=== PATIENT | female | born 1950 | race Caucasian/White ===

== ENCOUNTER → 2016-11-19 | Outpatient (CLI) | payer OTHER ==
[~2016-11-19] MED LIST: ASCA500 PO; CALC500C3 PO; CITRACEL; ERGO1CAP35 PO; FLUO10CA48 PO; MULT-506 PO; PRLSR20 PO; SYN50 PO
[2016-11-19 18:00] LABS: BLOOD UREA NITROGEN 18 mg/dl (7-18); BUN/CREATININE RATIO 29.3 (10-20); CALCIUM 9.4 mg/dl (8.5-10.1); CARBON DIOXIDE 31 mmol/L (21-32); CHLORIDE 100 mmol/L (98-107); CREATININE 0.61 mg/dl (0.60-1.20); GLUCOSE 77 mg/dl (70-99); MAGNESIUM 2.3 mg/dl (1.8-2.4); POTASSIUM 4.2 mmol/L (3.5-5.1); SODIUM 138 mmol/L (136-145)
== END | disposition home or self-care (01) ==
LOC: C.LABPVFM 12:04
PROVIDERS: ATTEND Nurse Practitioner
DX: R25.2 Cramp and spasm (principal)

== ENCOUNTER → 2016-12-17 | Outpatient (CLI) | payer OTHER | END | disposition home or self-care (01) | LOC: C.LABPVFM 07:27 | PROVIDERS: ATTEND Family Medicine | DX: J02.9 Acute pharyngitis, unspecified (principal) ==

== ENCOUNTER → 2017-03-08 | Outpatient (CLI) | payer OTHER ==
[2017-03-08 13:19] LABS: BASO % 0.4 %; BASO ABS # 0.03 K/uL (0-0.2); COMPLETE YES; EOS % 0.4 %; HEMATOCRIT 39.3 % (37-47); IG% 0.1 %; LYMPH % 23.3 %; LYMPH ABS # 1.77 K/uL (1.2-3.4); MEAN CELL VOLUME 92.9 fL (80-100); MEAN CORPUSCULAR HEMOGLOBIN 30.5 pg (25-34); MEAN CORPUSCULAR HGB CONC 32.8 g/dl (32-36); NEUT % 68.8 %; PLATELET COUNT 313 K/uL (130-400); RED BLOOD COUNT 4.23 M/uL (4.2-5.4)
[2017-03-11 21:53] LABS: ANTI-SS-A <1.0 NEG AI (<1.0 NEG); ANTI-SS-B <1.0 NEG AI (<1.0 NEG)
== END | disposition home or self-care (01) ==
LOC: C.LABPVFM 11:00
PROVIDERS: ATTEND Family Medicine
DX: J06.9 Acute upper respiratory infection, unspecified (principal); J02.9 Acute pharyngitis, unspecified; R59.1 Generalized enlarged lymph nodes

== ENCOUNTER → 2017-04-03 | Outpatient (CLI) | payer OTHER ==
--- NOTE | 2017-04-03 13:49 | MAMMOGRAPHY REPORT ---
BILATERAL DIGITAL SCREENING MAMMOGRAM WITH CAD: 04/03/2017 CLINICAL HISTORY: Routine screening. Patient has no complaints. TECHNIQUE: Current study was also evaluated with a Computer Aided Detection (CAD) system. Bilateral CC and MLO views were obtained. COMPARISON: Comparison is made to exams dated: 03/28/2016 mammogram, 03/16/2015 mammogram, 03/03/2014 ma mmogram, 03/04/2013 mammogram, 02/25/2013 mammogram, and 02/20/2012 mammogram - [facility]. BREAST COMPOSITION: There are scattered areas of fibroglandular density in both breasts. FINDINGS: No suspicious masses, calcifications, or areas of architectural distortion are noted in ei ther breast. There has been no significant interval change compared to prior exams. IMPRESSION: ACR BI-RADS CATEGORY 1: NEGATIVE There is no mammographic evidence of malignancy. A 1 year screening mammogram is recommended. The pa tient will receive written notification of the results. Approximately 10% of breast cancers are not detected with mammography. A negative mammographic report should not delay biopsy if a clinically suggestive mass is present. Naya Richter M.D. /:04/03/2017 12:44:42 Oxyacetylene Welder: Jessica POLANCO(Jhon)(Nataliia)(BD), [facility] letter sent: Normal 1/2 BI-RADS Code: ACR BI-RADS Category 1: Negative
== END | disposition home or self-care (01) ==
LOC: C.MAMM 11:02
PROVIDERS: ATTEND Nurse Practitioner
DX: Z12.31 Encounter for screening mammogram for malignant neoplasm of breast (principal)

== ENCOUNTER → 2017-06-23 | Outpatient (CLI) | payer OTHER ==
--- NOTE | 2017-06-23 11:10 | DIAGNOSTIC IMAGING REPORT ---
THORACIC SPINE 3 VIEWS HISTORY: MILD BACK PAIN COMPARISON: Thoracic spine 05/03/2016. FINDINGS: No change in the old mild superior endplate compression deformity at T8. Moderate degenerative disc disease with disc space narrowing, osteophytes, and endplate sclerosis at T7-T8 persists. No acute fractures identified within the thoracic spine. No subluxation. Paraspinal soft tissues are unremarkable. IMPRESSION: No change compared to the prior study. Old mild superior endplate compression deformity at T8. Stable moderate degenerative disc disease at T7-T8. No acute fractures. Electronically signed by: Jan Ravi M.D. 06/23/2017 11:09 AM Dictated Date/Time: 06/23/2017 11:05 AM
--- NOTE | 2017-06-23 12:16 | DIAGNOSTIC IMAGING REPORT ---
CHEST AND ABDOMEN 2 VIEWS HISTORY: MILD BACK PAIN COMPARISON: Abdomen and pelvis CT 11/22/2009. FINDINGS: The lungs are clear. The heart is normal in size. Levoscoliosis of the thoracolumbar spine. No pneumoperitoneum. No pneumatosis. The bowel gas pattern is unremarkable. No evidence for bowel obstruction. No renal or ureteral calculi. Degenerative changes seen within the mid to lower lumbar spine. Small calcification within the left deep pelvis is consistent with a phlebolith. IMPRESSION: No acute cardiopulmonary process. No evidence for bowel obstruction. Electronically signed by: Jan Ravi M.D. 06/23/2017 12:15 PM Dictated Date/Time: 06/23/2017 12:13 PM
[2017-06-23 12:47] LABS: MANUAL MICROSCOPIC REQUIRED? YES; REVIEW REQ? NO; URINE APPEARANCE CLEAR (CLEAR); URINE BILIRUBIN NEG (NEG); URINE COLOR YELLOW; URINE NITRITE NEG (NEG); UROBILINOGEN NEG (NEG)
[2017-06-23 13:08] LABS: URINE BACTERIA 1+ (NEG); URINE WBC 0 /hpf (0-5)
[2017-06-23 13:12] LABS: ALT/SGPT 30 U/L (12-78); AST/SGOT 26 U/L (15-37); BLOOD UREA NITROGEN 14 mg/dl (7-18); BUN/CREATININE RATIO 27.5 (10-20); CALCIUM 9.4 mg/dl (8.5-10.1); CARBON DIOXIDE 30 mmol/L (21-32); CHLORIDE 98 mmol/L (98-107); CREATININE 0.51 mg/dl (0.60-1.20); GLUCOSE 98 mg/dl (70-99); POTASSIUM 4.2 mmol/L (3.5-5.1); SODIUM 133 mmol/L (136-145)
[2017-06-23 13:31] LABS: ALB/GLOB RATIO 0.8 (0.9-2); ALKALINE PHOSPHATASE 69 U/L (45-117)
== END | disposition home or self-care (01) ==
LOC: C.RADPV 10:31
PROVIDERS: ATTEND Family Medicine Adult Medicine
DX: M51.34 Other intervertebral disc degeneration, thoracic region (principal)

== ENCOUNTER → 2017-11-14 | Outpatient (CLI) | payer OTHER | END | disposition home or self-care (01) | LOC: C.LAB1850 08:40 | PROVIDERS: ATTEND Internal Medicine Rheumatology | DX: M80.00XA Age-related osteoporosis with current pathological fracture, unspecified site, initial encounter for fracture (principal); X58.XXXA Exposure to other specified factors, initial encounter; E61.8 Deficiency of other specified nutrient elements ==

== ENCOUNTER 2021-11-14 11:45 | Observation (INO) ==
[2021-11-14] MEDS ORDERED: NITROGLYCERIN 2% OINTMENT 30GM TUBE EXT STA (12:00)
--- NOTE | 2021-11-14 12:06 | Emergency Department Note ---
History of Present Illness General Chief complaint: Chest Pain Stated complaint: CHEST PAIN Time Seen by Provider: 11/14/21 11:47 Source: patient Mode of arrival: ambulatory Limitations: no limitations History of Present Illness Provider complaint: chest pain Onset (ago): month(s) 2 Location: chest Radiation: non-radiation Severity: moderate Maximum Pain Intensity: 8 Associated symptoms: + chest pain and + shortness of breath; no cough, no diaphoresis, no headaches, no loss of appetite or no nausea/vomiting Treatments prior to arrival: aspirin and other This is a 71-year-old female sent to the emergency room after evaluation by cardiology, Dr. Sage in the office. Patient with recent preop EKG for EGD that was scheduled for yesterday. Patient's EKG found to be abnormal and so she was referred urgently to Dr. Sage today. Patient states she has been having intermittent chest pain over the course of the last 2 months, however more recently feels it is become more frequent and lasting longer. Patient states she does notice it with exertion but it has also happened at rest. Patient states she has noticed slight increased shortness of breath with exertion, particularly going up the stairs. Patient states the pressure and heaviness typically is in the lower central chest. She only had one episode of accompanying back pain but otherwise feels that the pain has not been radiating and was had no other accompanying pain in her neck, jaw, or upper extremities. Patient denies any accompanying diaphoresis, nausea or vomiting. Patient denies any history of hypertension, hyperlipidemia, diabetes, or tobacco abuse. Patient states many years ago she had an EKG done by her PCP at [facility], none more recent. No prior cardiac evaluation. Patient denies any recent illness or known sick contact. No other new medications. Pt seen during a time of high acuity and national emergency pandemic while wearing PPE. Home Medications Medication Instructions Recorded Confirmed Type calcium xvl-C6-T-mag 1 tab PO BID tab 03/19/19 11/14/21 History ht-[id number]-cqdsmr 250 mg calcium-500 unit tablet fexofenadine 180 mg tablet 180 mg PO DAILY 03/19/19 11/14/21 History multivitamin 1 tab PO DAILY 03/19/19 11/14/21 History polyethylene glycol 3350 17 See Rx Instructions PO DAILY PRN 03/19/19 11/14/21 History gram/dose oral powder (Miralax) cholecalciferol (vitamin D3) 25 1,000 unit PO DAILY cap 11/17/20 11/14/21 History mcg (1,000 unit) capsule omeprazole 20 mg capsule,delayed 20 mg PO .COMPLEX cap 01/11/21 11/14/21 H istory release levothyroxine 50 mcg tablet 50 mcg PO DAILY #90 tab 03/13/21 11/14/21 Rx Lactobacills gasseri-Bifidobac 1 cap PO DAILY #30 cap 06/05/21 11/14/21 Rx bifidum,longum 1.5 billion cell capsule (Inforama) echinacea 380 mg capsule 760 mg PO BID #60 cap 06/05/21 11/14/21 Rx methylcellulose (laxative) 500 mg 500 mg PO BID #60 tab 06/05/21 11/14/21 Rx tablet (Citrucel) clobetasol 0.05 % topical cream See Rx Instructions .ROUTE 11/08/21 11/14/21 Rx .COMPLEX PRN #15 g diclofenac sodium 1 % topical gel 2 g TOP .COMPLEX PRN #100 g 11/13/21 11/14/21 Rx melatonin 5 mg tablet 5 mg PO HS tab 11/13/21 11/14/21 History acetaminophen 500 mg tablet 500 mg PO Q6H PRN 11/14/21 11/14/21 History bacitracin zinc 500 unit-polymyxin 1 applic TOPICAL Q12H PRN 11/14/21 11/14/21 History B 10,000 unit/gram topical ointment Allergies Allergy/AdvReac Type Severity Reaction Status Date / Time Penicillins Allergy Mild RASH Unverified 11/14/21 13:15 pneumococcal vaccine Allergy Mild sore Verified 11/14/21 13:15 [From Prevnar 13 (PF)] swollen arm at injection site Cephalosporins Allergy Unknown Unknown Verified 11/14/21 13:15 nitrofurantoin Allergy Unknown Unknown Verified 11/14/21 13:15 metronidazole AdvReac Mild Nausea Verified 11/14/21 13:15 Sulfa (Sulfonamide AdvReac Mild VOMITING Unverified 11/14/21 13:15 Antibiotics) Past Med/Surg History Medical History Generalized abdominal pain History of hematuria Irritable bowel syndrome has mostly Diarrhea but has also had constipation Microscopic hematuria Surgical History History of cryosurgery of cervix History of dilation and curettage History of laparoscopy History of tubal ligation Family History Grandmother (Paternal) Breast cancer Brother Prostate cancer Heart disease Myocardial infarction Denies family history of Ovarian cancer Colorectal cancer Social History Smoking Status: Never smoker Second Hand Exposure: No; Do You Dip or Chew Tobacco: No; Tobacco Cessation Education Requested by Patient: No Hx Alcohol Use: No Hx Substance Use: No Communication Ability: Effective Facility Maintenance Technician Required: No Beliefs That Will Affect Care: None marital status: Current Living Situation: Spouse current occupational status: employed 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 Other Information That Helps Us Care for You: No Feels Safe at Home: Yes Safety Concerns: Feels Safe At This Time caffeine: Yes (Hot Chocolate and tea) Dental Care, Regularly: Yes Physical Activity Frequency: 5-6 Times per Week Seatbelt Use: always Sunscreen Use: Yes Assistive Devices: None Review of Systems A total of 10 systems reviewed and were otherwise negative All systems reviewed & are unremarkable except as noted in HPI & below Physical Exam Vital Signs Vital Signs - 24 hr 11/14/21 11:48 11/14/21 12:07 11/14/21 12:50 Temperature 36.8 C Temperature Source Temporal Artery Scan Pulse Rate 86 Pulse Rate [Left Apical] 86 Pulse Rhythm [Left Apical] Irregular Pulse Strength [Left Apical] Normal Respiratory Rate 18 27 H Respiratory Effort / Characteristics Non-Labored Respiratory Depth Normal Normal Normal Blood Pressure 155/81 H Blood Pressure [Right Arm] 163/88 H Blood Pressure Mean 105 Blood Pressure Mean [Right Arm] 113 Blood Pressure Position [Right Arm] Lying Pulse Oximetry 99 98 Oxygen Delivery Method Room Air Room Air Room Air Sepsis Recent Fever Within 48 Hours No Sepsis New/Unexplained Change in Mental Status No Sepsis Action Taken by Nursing No Action Required 11/14/21 13:30 Temperature Temperature Source Pulse Rate 81 Pulse Rate [Left Apical] Pulse Rhythm [Left Apical] Pulse Strength [Left Apical] Respiratory Rate 21 Respiratory Effort / Characteristics Respiratory Depth Blood Pressure 157/81 H Blood Pressure [Right Arm] Blood Pressure Mean 106 Blood Pressure Mean [Right Arm] Blood Pressure Position [Right Arm] Pulse Oximetry 98 Oxygen Delivery Method Sepsis Recent Fever Within 48 Hours Sepsis New/Unexplained Change in Mental Status Sepsis Action Taken by Nursing GENERAL: alert, well appearing, well nourished, no distress, non-toxic EYE EXAM: normal conjunctiva, PERRL and EOM's grossly intact OROPHARYNX: no exudate, no erythema, lips, buccal mucosa, and tongue normal and mucous membranes are moist NECK: supple, no nuchal rigidity, no adenopathy, non-tender LUNGS: Clear to auscultation. Normal chest wall mechanics, no w/r/r HEART: no murmurs, S1 normal and S2 normal ABDOMEN: abdomen soft, non-tender, normo-active bowel sounds, no masses, no rebound or guarding. BACK: Back is symmetrical on inspection and there is no deformity, no midline tenderness, no CVA tenderness. SKIN: no rashes and no bruising UPPER EXTREMITIES: upper extremities are grossly normal. FROM, nml pulses b/l. LOWER EXTREMITIES: No pitting edema. FROM, nml pulses b/l. NEURO EXAM: Normal sensorium, cranial nerves II-XII grossly intact, normal speech, no gross weakness of arms, no gross weakness of legs. Gross sensation intact. Course Administered Medications Heparin Sodium (Porcine) (Heparin Sod 5,000 Unit/0.5 Ml Vial) 5,000 units SQ Q8 ANI Stop: 12/14/21 14:29 Last Admin: 11/14/21 16:48 Dose: Not Given Documented by: [id number] Discontinued Medications Famotidine (Famotidine 20mg/5ml Iv Push) 20 mg IV ONE STA Stop: 11/14/21 12:10 Last Admin: 11/14/21 12:18 Dose: 20 mg Documented by: [id number] Nitroglycerin (Nitroglycerin 2% Ointment 30gm Tube) 1 inch EXT NOW STA Stop: 11/14/21 12:01 Last Admin: 11/14/21 12:17 Dose: 1 inch Documented by: [id number] Medical Decision Making Differential Diagnosis Differential diagnoses includes but is not limited to acute coronary syndrome, myocardial infarction, pericarditis, pulmonary embolus, aortic dissection, pneumonia, pneumothorax, musculoskeletal, shingles, esophageal. Medical Records Attestation: I reviewed the patient's medical records. Home Medications Current Medication List: was personally reviewed by me Laboratory Data Attestation: I reviewed the patient's lab results. Result diagrams: 11/14/21 12:04 11/14/21 12:04 Lab Results 11/14/21 11/14/21 11/14/21 Range/Units 12:04 12:04 12:04 WBC 7.56 (4.8-10.8) K/uL RBC 4.51 (4.2-5.4) M/uL Hgb 13.9 (12.0-16.0) g/dL Hct 41.9 (37-47) % MCV 92.9 (80-100) fL MCH 30.8 (25-34) pg MCHC 33.2 (32-36) g/dL RDW Std Deviation 40.7 (36.4-46.3) fL RDW Coeff of Lance 12.1 (11.5-14.5) % Plt Count 312 (130-400) K/uL MPV 10.2 (7.4-10.4) fL Immature Gran % (Auto) 0.1 % Neut % (Auto) 56.6 % Lymph % (Auto) 33.9 % Terrell % (Auto) 8.7 % Eos % (Auto) 0.4 % Baso % (Auto) 0.3 % Neut # (Auto) 4.28 (1.4-6.5) K/uL Lymph # (Auto) 2.56 (1.2-3.4) K/uL Terrell # (Auto) 0.66 H (0.11-0.59) K/uL Eos # (Auto) 0.03 (0-0.5) K/uL Baso # (Auto) 0.02 (0-0.2) K/uL Immature Gran # (Auto) 0.01 (0.00-0.02) K/uL PT Cancelled INR Cancelled Sodium 136 (136-145) mmol/L Potassium TNP Chloride 99 (98-107) mmol/L Carbon Dioxide 30 (21-32) mmol/L Anion Gap 7 (3-11) BUN 16 (6-23) mg/dl Creatinine 0.55 L (0.6-1.2) mg/dl Est Cr Clr Drug Dosing 81.0 ml/min Est GFR ( Amer) 109.4 ml/min Est GFR (Non-Af Amer) 94.4 ml/min BUN/Creatinine Ratio 29.1 H (10-20) Glucose 90 (70-99(Fasting)) mg/dl Calcium 9.8 (8.5-10.1) mg/dl Magnesium 2.0 (1.7-2.4) mg/dl Total Bilirubin 0.3 (0.2-1.0) mg/dl AST TNP ALT 20 (7-52) U/L Alkaline Phosphatase 53 (34-104) U/L Troponin I < 0.03 (0-0.04) ng/ml Total Protein 7.8 (6.0-8.3) gm/dl Albumin 4.2 (3.4-5.0) gm/dl Globulin 3.6 (2.5-4.0) gm/dl Albumin/Globulin Ratio 1.2 (0.9-2) TSH (0.300-4.500) uIu/ml SARS-CoV-2, RNA, NAAT (NEGATIVE) 11/14/21 11/14/21 11/14/21 Range/Units 12:19 12:56 13:02 WBC (4.8-10.8) K/uL RBC (4.2-5.4) M/uL Hgb (12.0-16.0) g/dL Hct (37-47) % MCV (80-100) fL MCH (25-34) pg MCHC (32-36) g/dL RDW Std Deviation (36.4-46.3) fL RDW Coeff of Lance (11.5-14.5) % Plt Count (130-400) K/uL MPV (7.4-10.4) fL Immature Gran % (Auto) % Neut % (Auto) % Lymph % (Auto) % Terrell % (Auto) % Eos % (Auto) % Baso % (Auto) % Neut # (Auto) (1.4-6.5) K/uL Lymph # (Auto) (1.2-3.4) K/uL Terrell # (Auto) (0.11-0.59) K/uL Eos # (Auto) (0-0.5) K/uL Baso # (Auto) (0-0.2) K/uL Immature Gran # (Auto) (0.00-0.02) K/uL PT 10.2 INR 1.0 Sodium (136-145) mmol/L Potassium Chloride (98-107) mmol/L Carbon Dioxide (21-32) mmol/L Anion Gap (3-11) BUN (6-23) mg/dl Creatinine (0.6-1.2) mg/dl Est Cr Clr Drug Dosing ml/min Est GFR ( Amer) ml/min Est GFR (Non-Af Amer) ml/min BUN/Creatinine Ratio (10-20) Glucose (70-99(Fasting)) mg/dl Calcium (8.5-10.1) mg/dl Magnesium (1.7-2.4) mg/dl Total Bilirubin (0.2-1.0) mg/dl AST ALT (7-52) U/L Alkaline Phosphatase (34-104) U/L Troponin I (0-0.04) ng/ml Total Protein (6.0-8.3) gm/dl Albumin (3.4-5.0) gm/dl Globulin (2.5-4.0) gm/dl Albumin/Globulin Ratio (0.9-2) TSH 1.872 (0.300-4.500) uIu/ml SARS-CoV-2, RNA, NAAT NEGATIVE (NEGATIVE) Imaging Data Radiologist's Impression: Chest X-Ray 11/14/21 11:48 XR chest 1V portable CLINICAL HISTORY: chest pain. COMPARISON STUDY: 03/21/2020 TECHNIQUE: 1 view of the chest FINDINGS: Single frontal view of the chest demonstrates the cardiomediastinal silhouette to be within normal limits. The lungs are clear of alveolar opacities. There is no evidence for pleural effusion. There is no evidence for vascular congestion. There is no acute osseous pathology. IMPRESSION: 1. No acute cardiopulmonary disease. ACT 112: Negative or not required by law. Electronically signed by: Eddie Davies M.D. 11/14/2021 12:19 PM ECG Data Attestation: I personally reviewed and interpreted this ECG as follows: Indication: + chest pain Rate (beats per minute): 78 Rhythm: + normal sinus ECG Intervals/blocks: + Left bundle branch block and + Normal QT ECG [place]: + Left axis deviation MDM Narrative This is a 71-year-old female sent in from cardiology office due to concern for ongoing chest pain, dyspnea on exertion, and an abnormal EKG which showed a presumably new left bundle branch block. Patient with no prior history. Other than age patient with no overt cardiac risk factors. Cardiology had contacted their in-house colleague prior to my evaluation. Upon patient arrival, EKG performed, labs drawn and sent, and Nitropaste applied as a precaution. Patient was hemodynamically stable. Dr. Garcia from cardiology came and evaluated the patient in the emergency room and ordered a stat echo. Patient made hemodynamically stable in the emergency room. Case discussed with hospitalist for additional evaluation and management, cardiology's plan at this point is to perform an echo and then potentially take patient for cardiac catheterization today. An order was placed for continuous cardiac monitoring. The monitor shows a rate of _86_ with _normal sinus_ rhythm. Impression & Plan Chest pain, SIGALA (dyspnea on exertion), Left bundle-branch block, unspecified Discharge Plan Visit Data Chief Complaint: Chest Pain Stated Complaint: CHEST PAIN ED Provider: Ana Paula Dumont Discharge Problem: Chest pain, SIGALA (dyspnea on exertion), Left bundle-branch block, unspecified Patient Disposition: Admitted As Inpatient Discharge Instructions Interventions: ED Discharge Assessment Last Done: 11/14/21 13:58 Discharge Problem: Chest pain Qualifiers: Chest pain type: unspecified Qualified Code(s): R07.9 - Chest pain, unspecified
[2021-11-14] MEDS ORDERED: FAMOTIDINE 20MG/5ML IV PUSH IV STA (12:09)
[2021-11-14 12:15] LABS: Basophils # (auto) 0.02 K/uL (0-0.2); Basophils % (auto) 0.3 %; Eosinophils # (auto) 0.03 K/uL (0-0.5); Eosinophils % (auto) 0.4 %; Hematocrit (blood only) 41.9 % (37-47); Hemoglobin 13.9 g/dL (12.0-16.0); Immature Granulocytes # (auto) 0.01 K/uL (0.00-0.02); Immature Granulocytes % (auto) 0.1 %; Lymphocytes # (auto) 2.56 K/uL (1.2-3.4); Lymphocytes % (auto) 33.9 %; Mean Corpuscular Hemoglobin 30.8 pg (25-34); Mean Corpuscular Hgb Conc 33.2 g/dL (32-36); Mean Corpuscular Volume 92.9 fL (80-100); Mean Platelet Volume 10.2 fL (7.4-10.4); Monocytes # (auto) 0.66 K/uL (0.11-0.59); Monocytes % (auto) 8.7 %; Neutrophils # (auto) 4.28 K/uL (1.4-6.5); Neutrophils % (auto) 56.6 %; Platelet Count 312 K/uL (130-400); RDW Coefficient of Variation 12.1 % (11.5-14.5); RDW Standard Deviation 40.7 fL (36.4-46.3); Red Blood Count 4.51 M/uL (4.2-5.4); White Blood Count 7.56 K/uL (4.8-10.8)
--- NOTE | 2021-11-14 12:20 | XRay Report ---
XR chest 1V portable CLINICAL HISTORY: chest pain. COMPARISON STUDY: 03/21/2020 TECHNIQUE: 1 view of the chest FINDINGS: Single frontal view of the chest demonstrates the cardiomediastinal silhouette to be within normal li mits. The lungs are clear of alveolar opacities. There is no evidence for pleural effusion. There is no evidence for vascular congestion. There is no acute osseous pathology. IMPRESSION: 1. No acute cardiopulmonary disease. ACT 112: Negative or not required by law. Electronically signed by: Eddie Davies M.D. 11/14/2021 12:19 PM
[2021-11-14 12:40] LABS: Troponin I < 0.03 ng/ml (0-0.04)
--- NOTE | 2021-11-14 12:49 | History & Physical Report ---
Date of Service November 14, 2021 Assessment & Plan (1) Chest pain: Plan: New LBBB, Episodic Angina, ?Exertional Dyspnea - Pt does have concerning history of increasing angina worst on Sep 20 and with some subsequent exertional chest pain and an episode of exertional dyspnea. Cardiology consulted, discussed with Dr. Garcia.? [place] event in August EKG: Rate approximately 80, left bundle branch block QRS 148, QTc 453 - NPO pending potential cardiac eval -Defer heparinization at this time Nitropaste No leukocytosis, hemoglobin normal Admitting troponin normal, trend every 6 hours x3 Admitting creatinine 0.55, estimated GFR 94 Potassium being rechecked, inaccurate due to hemolysis. Goal potassium 4.0 Magnesium pending. Goal magnesium 2.0 Covid negative CXR: No acute cardiopulmonary disease TTE: Pending results (2) GERD (gastroesophageal reflux disease): Plan: GERD History of heartburn on omeprazole Was pending EGD, was noted to have left bundle branch block prior to EGD and was referred for cardiac evaluation. Characterization of history and review above is what caused patient to present at recommendation of territory supervisor to the hospital for further evaluation Continue Protonix Famotidine twice daily (3) Hypothyroidism: Plan: Hypothyroidism Continue Synthroid 50 mcg daily TSH/T4 pending (4) Irritable bowel syndrome: Plan: IBSC Continue MiraLAX Continue Citrucel (5) Anxiety: Plan: -Melatonin 5mg qhS for sleep Plan: DVT prophylaxis: SCDs, heparin Diet: N.p.o. pending cardiac eval Disposition: Telemetry CODE STATUS: Full code History of Present Illness Primary Care Provider: PAULINA Denson 71yo F who presents with EKG +for LBBB on eval for EGD, saw Dr. Sage today and reported history of increasing CP with extertion an dsome exertional dyspnea. Was given nitro and baby aspirin x4 which helped a little. Hx of gastritis/stomach inflammation on prior endoscopy. Chest pain is still present since coming over from cardiology office. 2-12/06. Has had symptoms for more than 24 hours, pressure-like in quality and low sternum high epigastrium. No pain in the arm/neck Received ASA 81mg x4+nitro and was sent over. Refused ambulance, drove her over. Had similar pain, very intense nighttime pain Sep 20 with radiation in to the back. Lasted through the night and improved by the next morning. ?[place] at that time. Has had reflux problems for 20 years. Current pain is low substernal, feels different than her prior reflux. Tight quality. In the last several days/weeks she does report that she has had some chest pain with exertion, recently has had an episode of dyspnea with exertion. No diaphoresis. Brother has had triple bypass in 60s. Patient does not have a history of tobacco abuse. Treated for hypothyroidism, no hypertension Last stress echo 2018. Normal. NO LBBB in 2019. New EKG with LBBB. At bedside assessment continues 2-3 pain, no dyspnea. Medical History: Reviewed FHx: Brother with triple bipass in 60s. Medications: Reviewed Surgical History: Reviewed Allergies: Reviewed Social History: No tobacco product use, wine at communion only, no MM or recreational drug use. Code Status: Surrogate decision maker would be her . Full Code. Allergies Allergy/AdvReac Type Severity Reaction Status Date / Time Penicillins Allergy Mild RASH Unverified 11/14/21 13:15 pneumococcal vaccine Allergy Mild sore Verified 11/14/21 13:15 [From Prevnar 13 (PF)] swollen arm at injection site Cephalosporins Allergy Unknown Unknown Verified 11/14/21 13:15 nitrofurantoin Allergy Unknown Unknown Verified 11/14/21 13:15 metronidazole AdvReac Mild Nausea Verified 11/14/21 13:15 Sulfa (Sulfonamide AdvReac Mild VOMITING Unverified 11/14/21 13:15 Antibiotics) Home Medications Medication Instructions Recorded Confirmed Type calcium fqa-X2-P-mag 1 tab PO BID tab 03/19/19 11/14/21 History fm-bgkgkt-sctkks 250 mg calcium-500 unit tablet fexofenadine 180 mg tablet 180 mg PO DAILY 03/19/19 11/14/21 History multivitamin 1 tab PO DAILY 03/19/19 11/14/21 History polyethylene glycol 3350 17 See Rx Instructions PO DAILY PRN 03/19/19 11/14/21 History gram/dose oral powder (Miralax) cholecalciferol (vitamin D3) 25 1,000 unit PO DAILY cap 11/17/20 11/14/21 History mcg (1,000 unit) capsule omeprazole 20 mg capsule,delayed 20 mg PO .COMPLEX cap 01/11/21 11/14/21 History release levothyroxine 50 mcg tablet 50 mcg PO DAILY #90 tab 03/13/21 11/14/21 Rx Lactobacills gasseri-Bifidobac 1 cap PO DAILY #30 cap 06/05/21 11/14/21 Rx bifidum,longum 1.5 billion cell capsule ([email or web address]) echinacea 380 mg capsule 760 mg PO BID #60 cap 06/05/21 11/14/21 Rx methylcellulose (laxative) 500 mg 500 mg PO BID #60 tab 06/05/21 11/14/21 Rx tablet (Citrucel) clobetasol 0.05 % topical cream See Rx Instructions .ROUTE 11/08/21 11/14/21 Rx .COMPLEX PRN #15 g diclofenac sodium 1 % topical gel 2 g TOP .COMPLEX PRN #100 g 11/13/21 11/14/21 Rx melatonin 5 mg tablet 5 mg PO HS tab 11/13/21 11/14/21 History acetaminophen 500 mg tablet 500 mg PO Q6H PRN 11/14/21 11/14/21 History bacitracin zinc 500 unit-polymyxin 1 applic TOPICAL Q12H PRN 11/14/21 11/14/21 History B 10,000 unit/gram topical ointment Past Med/Surg History Medical History Generalized abdominal pain History of hematuria Irritable bowel syndrome has mostly Diarrhea but has also had constipation Microscopic hematuria Surgical History History of cryosurgery of cervix History of dilation and curettage History of laparoscopy History of tubal ligation Family History Grandmother (Paternal) Breast cancer Brother Prostate cancer Heart disease Myocardial infarction Denies family history of Ovarian cancer Colorectal cancer Social History Smoking Status: Never smoker Second Hand Exposure: No; Hx Alcohol Use: No Hx Substance Use: No marital status: Current Living Situation: Spouse current occupational status: employed 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 NAD. Cooperative. HEENT: Atraumatic, normocephalic. Visual acuity grossly intact, hearing slightly impaired but grossly intact. Pulm: CTAB A&P. -wheezes, -rales, -rhonchi. Symmetrical chest rise. No increased work of breathing. No respiratory distress. Cardiac: RRR, -mrg. Radial pulses intact and symmetrical. Chest pain is not worsened by palpation overlying sternum or epigastrium. Abdominal: Nontender, nondistended, soft. BS present. Extremities: Warm, dry moving all extremities equally, sensation to soft touch intact in hands and feet bilaterally. [place] Operator strength 5/5, elbow flexion 5/5 bilaterally. Ankle dorsiflexion/plantar flexion 5/5. No pedal edema appreciated. Results & Data Results & Data ([facility]) Vital Signs (Past 12 Hours) Vital Signs Temp Pulse Resp BP Pulse Ox 11/14/21 11:48 36.8 C 86 18 155/81 H 99 PG Care Time/CCT Total # of Minutes Spent Total Time Spent with Patient: Total time spent is greater than 50% in coordination of care (as documented) at patient's floor/unit and/or counseling patient: Coding Level of Care Code INT OBSERVATION CARE 70M LVL 3 Diagnoses Chest pain R07.9 GERD (gastroesophageal reflux disease) K21.9 Hypothyroidism E03.9 Irritable bowel syndrome K58.9 Anxiety F41.9
[2021-11-14 12:51] LABS: Alanine Aminotransferase 20 U/L (7-52); Albumin Globulin Ratio 1.2 (0.9-2); Albumin Level 4.2 gm/dl (3.4-5.0); Alkaline Phosphatase 53 U/L (34-104); Anion Gap 7 (3-11); BUN Creatinine Ratio 29.1 (10-20); Bilirubin,Total 0.3 mg/dl (0.2-1.0); Blood Urea Nitrogen 16 mg/dl (6-23); Calcium 9.8 mg/dl (8.5-10.1); Carbon Dioxide 30 mmol/L (21-32); Chloride 99 mmol/L (98-107); Est GFR (African American) 109.4 ml/min; Est GFR (Non-African American) 94.4 ml/min; Globulin 3.6 gm/dl (2.5-4.0); Glucose 90 mg/dl (70-99(Fasting)); Sodium 136 mmol/L (136-145); Total Protein 7.8 gm/dl (6.0-8.3)
--- NOTE | 2021-11-14 13:13 | Cardiology Consultation ---
Date of Consultation November 14, 2021 Assessment & Plan (1) Chest pain: 71-year-old female with cardiac risk factors of age and family history of coronary heart disease. Historical LDL level dating back to Jan, 2021 was 78 mg/dL. She has had waxing and waning symptoms of "fullness, pressure "dating back to 09/20/2021 when she had a severe episode. The symptoms can come on with exertion or when she is just sitting still. She states that overall she has been able to keep up with her exercise routine and she does not in-home video, and she does not notice any symptoms with walking in a store. Given the characteristic of her symptoms, recommend proceeding with a resting echocardiogram for assessment of left ventricular systolic function and for valvular function. The most prudent approach will likely be to proceed with definitive invasive coronary angiography. SARS-CoV-2 screen negative. History of Present Illness History of Present Illness Shima Lindo (Peggy) sis a 71 year old female seen in cardiology consultation per the request of Dr Dumont for the evaluation of chest discomfort and newly diagnosed left bundle branch block on EKG. she is accompanied by her , Mehran. [facility] She has a history of hypothyroidism, and has osteoporosis, GERD, and gastritis as noted on previous EGD. She takes omeprazole daily. 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 She has not however performed piano lessons recently due to concerns with regards to the pandemic. In 2019 she had undergone an exercise stress echocardiogram for evaluation of exertional chest discomfort while walking [place]. She completed 6 minutes and 59 seconds on a standard Marty protocol, with no EKG or echocardiographic evidence of inducible ischemia. EKG at that time was normal at rest with the exception of poor R wave progression in the anterior precordial leads. Her recent symptoms date back to 09/20/2021 when she developed onset of a pressure sensation behind her sternum. Her symptoms were severe and waxed waned for hours at that time. She was however preoccupied with holiday preparations, and did not seek medical care. After a few days, her symptoms improved to some degree, but she still notes an episodic sensation of a "fullness, and pressure behind the sternum ". She presented for an outpatient EGD and evaluation of the symptoms yesterday, and after discussion with the anesthesiologist, an EKG was performed revealing newly diagnosed left bundle branch block. She presented to the outpatient cardiology clinic at [facility] today, and due to the nature of her ongoing symptoms she was referred to the emergency room for further evaluation. At the time of my evaluation the patient was still having the pressure sensation, but without acute distress. She has received 324 mg of aspirin, nitroglycerin dose, and topical nitroglycerin with no significant change in her symptoms. Past Medical History: as above Family History: Brother with CAD, CABG in her early 60s at [facility]. Social History: , Don. 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 She is active in her local quaker. Allergies Allergy/AdvReac Type Severity Reaction Status Date / Time Penicillins Allergy Mild RASH Unverified 11/14/21 13:15 pneumococcal vaccine Allergy Mild sore Verified 11/14/21 13:15 [From Prevnar 13 (PF)] swollen arm at injection site Cephalosporins Allergy Unknown Unknown Verified 11/14/21 13:15 nitrofurantoin Allergy Unknown Unknown Verified 11/14/21 13:15 metronidazole AdvReac Mild Nausea Verified 11/14/21 13:15 Sulfa (Sulfonamide AdvReac Mild VOMITING Unverified 11/14/21 13:15 Antibiotics) Home Medications Medication Instructions Recorded Confirmed Type calcium lhh-S2-H-mag 1 tab PO BID tab 03/19/19 11/13/21 History eg-afnyoa-issbhk 250 mg calcium-500 unit tablet fexofenadine 180 mg tablet 180 mg PO DAILY 03/19/19 11/13/21 History multivitamin 1 tab PO DAILY 03/19/19 11/13/21 History polyethylene glycol 3350 17 See Rx Instructions PO DAILY PRN 03/19/19 11/13/21 History gram/dose oral powder (Miralax) cholecalciferol (vitamin D3) 25 1,000 unit PO DAILY cap 11/17/20 11/13/21 History mcg (1,000 unit) capsule omeprazole 20 mg capsule,delayed 20 mg PO .COMPLEX cap 01/11/21 11/14/21 History release levothyroxine 50 mcg tablet 50 mcg PO DAILY #90 tab 03/13/21 11/14/21 Rx Lactobacills gasseri-Bifidobac 1 cap PO DAILY #30 cap 06/05/21 11/13/21 Rx bifidum,longum 1.5 billion cell capsule ([employer]) echinacea 380 mg capsule 760 mg PO BID #60 cap 06/05/21 11/13/21 Rx methylcellulose (laxative) 500 mg 500 mg PO BID #60 tab 06/05/21 11/13/21 Rx tablet (Citrucel) clobetasol 0.05 % topical cream See Rx Instructions .ROUTE 11/08/21 11/13/21 Rx .COMPLEX PRN #15 g diclofenac sodium 1 % topical gel 2 g TOP .COMPLEX PRN #100 g 11/13/21 11/13/21 Rx melatonin 5 mg tablet 5 mg PO HS tab 11/13/21 11/13/21 History acetaminophen 500 mg tablet 500 mg PO Q6H PRN 11/14/21 11/14/21 History bacitracin zinc 500 unit-polymyxin 1 applic TOPICAL Q12H PRN 11/14/21 11/14/21 History B 10,000 unit/gram topical ointment Patient History Medical History Generalized abdominal pain History of hematuria Irritable bowel syndrome has mostly Diarrhea but has also had constipation Microscopic hematuria Surgical History History of cryosurgery of cervix History of dilation and curettage History of laparoscopy History of tubal ligation Family History Grandmother (Paternal) Breast cancer Brother Prostate cancer Heart disease Myocardial infarction Denies family history of Ovarian cancer Colorectal cancer Social History Smoking Status: Never smoker Second Hand Exposure: No; Hx Alcohol Use: No Hx Substance Use: No marital status: Current Living Situation: Spouse current occupational status: employed 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 Feels Safe at Home: Yes caffeine: Yes (Hot Chocolate and tea) Dental Care, Regularly: Yes Physical Activity Frequency: 5-6 Times per Week Seatbelt Use: always Sunscreen Use: Yes Review of Systems Review of Systems: All systems reviewed & are unremarkable except as noted in HPI & below Physical Exam Physical Exam: Temp Pulse Resp BP Pulse Ox 36.8 C 86 27 H 163/88 H 98 11/14/21 11:48 11/14/21 12:50 11/14/21 12:50 11/14/21 12:50 11/14/21 12:50 Respiratory: normal respiratory effort, lungs clear to auscultation Cardiovascular: RRR, no murmur, no edema Gastrointestinal (Abdomen): normal bowel sounds, soft, nontender, no hepatosplenomegaly Neurologic: PERRL, EOMI, accommodation nl, no face palsy, no dysarthria Psychiatric: A+Ox3, euthymic affect Results & Data ([facility]) Vital Signs (Past 12 Hours) Vital Signs Temp Pulse Pulse Resp BP BP Pulse Ox 11/14/21 12:50 86 27 H 163/88 H 98 11/14/21 11:48 36.8 C 86 18 155/81 H 99 Laboratory Results Cardiac Enzymes 11/14/21 Range/Units 12:04 AST TNP Troponin I < 0.03 (0-0.04) ng/ml Coagulation 11/14/21 Range/Units 12:04 PT Cancelled CBC 11/14/21 Range/Units 12:04 WBC 7.56 (4.8-10.8) K/uL RBC 4.51 (4.2-5.4) M/uL Hgb 13.9 (12.0-16.0) g/dL Hct 41.9 (37-47) % Plt Count 312 (130-400) K/uL Neut # (Auto) 4.28 (1.4-6.5) K/uL Lymph # (Auto) 2.56 (1.2-3.4) K/uL [place] # (Auto) 0.66 H (0.11-0.59) K/uL Eos # (Auto) 0.03 (0-0.5) K/uL Baso # (Auto) 0.02 (0-0.2) K/uL Comprehensive Metabolic Panel 11/14/21 Range/Units 12:04 Sodium 136 (136-145) mmol/L Potassium TNP Chloride 99 (98-107) mmol/L Carbon Dioxide 30 (21-32) mmol/L BUN 16 (6-23) mg/dl Creatinine 0.55 L (0.6-1.2) mg/dl Glucose 90 (70-99(Fasting)) mg/dl Calcium 9.8 (8.5-10.1) mg/dl AST TNP ALT 20 (7-52) U/L Alkaline Phosphatase 53 (34-104) U/L Total Protein 7.8 (6.0-8.3) gm/dl Albumin 4.2 (3.4-5.0) gm/dl Intake and Output 11/13/21 11/14/21 11/14/21 22:59 06:59 14:59 Other: Weight 62.5 kg Weight Measurement Method Chair Scale Patient Weight 11/15/21 06:59 Weight 62.5 kg Diagnostic Findings EKG performed today, per minute, left bundle branch block, QRS duration 140\\8 ms, unchanged compared to the previous tracing performed 11/13/2021. Compared to 2019, left bundle branch block now present.
[2021-11-14 13:38] LABS: Prothrombin Time 10.2 Seconds (9.0-12.0)
[2021-11-14] MEDS ORDERED: POLYETHYLENE (MIRALAX) 17 GM PACK PO PRN (13:56)
[2021-11-14] MEDS ORDERED: ACETAMINOPHEN 325 MG TAB PO PRN (13:56)
[2021-11-14] MEDS ORDERED: NITROGLYCERIN SL 0.4 MG/TAB TAB SL PRN (13:56)
[2021-11-14] MEDS ORDERED: MoRPHine SULFATE 2 MG/ML CARP IV PRN (13:56)
[2021-11-14] MEDS ORDERED: HEPARIN SOD 5,000 UNIT/0.5 ML VIAL SQ SCH (14:30)
--- NOTE | 2021-11-14 15:29 | Electrocardiogram Report ---
Test Reason : Blood Pressure : / mmHG Vent. Rate : 078 BPM Atrial Rate : 078 BPM P-R Int : 150 ms QRS Dur : 148 ms QT Int : 398 ms P-R-T Axes : 064 -12 086 degrees QTc Int : 453 ms Poor data quality, interpretation may be adversely affected Normal sinus rhythm Possible Left atrial enlargement Left bundle branch block Abnormal ECG No previous ECGs available Confirmed by Aroldo Marie ([id number]) on 11/14/2021 3:29:17 PM Referred By: REFERRED SELF Confirmed By:Aroldo Marie
--- NOTE | 2021-11-14 15:56 | Post Anesthesia Assessment ---
Date of Service November 14, 2021 Post Sedation Assessment Vital Signs Temp Pulse Pulse Resp BP BP Pulse Ox 11/14/21 15:45 72 16 144/94 H 98 11/14/21 15:30 74 16 134/73 99 11/14/21 15:23 74 16 115/73 98 11/14/21 14:18 98.2 F 81 22 144/75 H 96 11/14/21 13:30 81 21 157/81 H 98 11/14/21 12:50 86 27 H 163/88 H 98 11/14/21 11:48 98.2 F 86 18 155/81 H 99 Recovery Score Activity: Moves 4 extremities Respiration: Deep Breath/Cough Circulation: +/-20% PreAnes Value Consciousness: Fully Awake Oxygen Saturation: O2 needed for >90% Post Anesthesia Score: 10 Discharge Sedation Level of Care: Fast Track Phase II Post Sedation Plan On clinical assessment, the patient appears to have tolerated the sedation without complications. Patient is recovering as anticipated. Patient will continue to be monitored by nursing and may be discharged when sedation discharge criteria are met per below protocol. Upon Completions of procedure up to 15 minutes continue every 5 minute vital signs and the P.A.R. score; then discharge to a Phase I or Fast Track to Phase II per the following guidelines: * Discharge Patient to appropriate Phase II area if PAR is 8 or greater or return to pre- procedure baseline. The post - procedure orders will be as directed. * If PAR score is less than 8 or not return to pre-procedure baseline then patient will follow Phase I monitoring till PAR is reached for Phase II. The Phase I may be done in procedure room or may call to secure a Phase I area. * If naloxone or flumazenil are used for reversal, hold in Phase I for continued monitoring from when last reversal dose was given for a minimum of 60 minutes or longer pending the nurse and/or physician discretion of patient condition before discharge to Phase II. Please call the Sedation Physician to re-evaluate and complete post-note for discharge to Phase II area. Do NOT discharge from procedure sedation or Phase 1 until post- sedation eval uation note is complete by procedure /sedation MD Sedation Discharge Instructions to be given to the patient at discharge to home.
--- NOTE | 2021-11-14 15:56 | Pre Anesthesia Assessment ---
Date of Service November 14, 2021 Pre Sedation Assessment Vital Signs Temp Pulse Pulse Resp BP BP Pulse Ox 11/14/21 15:45 72 16 144/94 H 98 11/14/21 15:30 74 16 134/73 99 11/14/21 15:23 74 16 115/73 98 11/14/21 14:18 98.2 F 81 22 144/75 H 96 11/14/21 13:30 81 21 157/81 H 98 11/14/21 12:50 86 27 H 163/88 H 98 11/14/21 11:48 98.2 F 86 18 155/81 H 99 Cardiovascular RRR, no murmur, no edema Respiratory normal respiratory effort, lungs clear to auscultation Pre-Sedation Airway Assessment Smoking Status: Never smoker Hx Sleep Apnea: No Hx Difficult Intubation: No Short, Thick Neck: No Thyromental Distance: > or= 3.5 Finger Breadths Oral Cavity: + WNL Mallampati Class: II ASA: ASA3 NPO Status Date of Last Intake of Fluids: 11/13/21 Date of Last Intake of Solid Food: 11/13/21 Procedure Planning Contraindications for Sedation: none Current Medications Reviewed: Yes Notes The planned sedation has been discussed with the patient. Informed Consent was obtained. I have identified the patient, determined the appropriateness of sedation and have assessed the patient immediately prior to the procedure. All medicine(s) and interventions are by my order.
--- NOTE | 2021-11-14 15:59 | Cardiac Catheterization ---
[facility] Data: Breakfast Manager Cardiac Status Clinical evaluation leading to the procedure CAD Presenation: Unstable angina Anginal Classification: CCS III Heart Failure: No Cardiogenic Shock within 24 Hours: No Cardiac Arrest within 24 Hours: No Imaging Studies Past 6 Months: Yes Stress Studies Past 6 Months: No Diagnostic Physicians Name: Pankaj Lindo MD Status: Elective Closure Device Percutaneous Entry Location: Radial Closure Device: Radial Band Recommendations: Medical Therapy and/or Counseling Intraprocedure Events Significant Disection: No Perforation: No Cardiac Cath Procedure Full Procedure Date November 14, 2021 Pre-Procedure Diagnosis Pre-Procedure Diagnosis: Angina AUC Score AUC Score: 7 Post-Procedure Diagnosis Post-Procedure Diagnosis: Normal Coronary Arteries and Normal Intracardiac Pressures Procedure(s) Performed Procedure(s) Performed: Coronary Angiography and Left Heart Cath Agricultural Equipment Salesperson Pankaj Lindo MD Mortgage Analyst(s) Showers Estimated Blood Loss Estimated Blood Loss: 5 Medication(s) Medication(s): Fentanyl, Heparin, Lidocaine 1%, Nicardipine, Nitroglycerin and Versed Summary of Findings Indication: Suspected ACS, left bundle branch block Access: 6 Fr right radial artery Catheters: Mcpherson Findings: LM -Short, no significant disease LAD -large caliber, angiographically normal, distal vessel wraps around apex. Gives off 3 small diagonals without significant disease. Circumflex -medium caliber, gives off high large OM1 without significant disease. Remainder of AV groove circumflex without significant disease. RCA -dominant, medium caliber, angiographically normal LVEDP -7 Arterial Closure: TR band Summary: 1. Angiographically normal coronary arteries 2. Normal intracardiac filling pressure Recommendations: Further evaluation for noncardiac causes of current chest pain. Hemodynamics Rest Ao:: 139/64/96 Final Ao: 136/71/99 LV: 142/7 Recommendations Recommendations: Medical Therapy and/or Counseling Specimens Specimens: None Radiation Exposure (mGy) 232 Contrast (mls) 35 Fluids (cc crystalloids) Fluids (cc crystalloids): 70 Drains Drains: None Anesthesia Moderate 0833-2205 Procedural Complication(s) None Disposition PCU I attest to the content of the Intraoperative Record and any orders documented therein. Any exceptions are noted below. [employer] Card Cath Procedure Codes Cardiac Catheterization Procedure 1: Cardiovascular Cath Procedures: 60720 Coronaries and LHC (+/-LV) Moderate Sedation Procedure 1: Sedation/Anesthesia: 07921 Mod Sedation by the same physician;Init15 Min Child Age 5 & Up PG Care Time/CCT Total # of Minutes Spent Total Time Spent with Patient: Total time spent is greater than 50% in coordination of care (as documented) at patient's floor/unit and/or counseling patient:
--- NOTE | 2021-11-14 17:33 | Communication Note ---
Date of Service: November 14, 2021 Echocardiogram performed today revealed abnormal septal motion consistent with underlying left bundle branch block. The left ventricular wall motion was otherwise normal, with preserved left ventricular systolic function, ejection fraction in the range of 55-60%. Trace tricuspid regurgitation was present otherwise no significant valvular heart disease. Cardiac catheterization revealed angiographically normal coronary arteries. Procedure was performed via a right radial artery approach. The patient's symptoms of "fullness, pressure" of the epigastric, caudal substernal area, are felt to be nonanginal, not due to coronary artery disease. Echocardiogram excludes the presence of an underlying cardiomyopathy. She will need routine clinical follow-up on an ongoing basis for the left bundle branch block, and the pathophysiology of left bundle branch block and conduction system disease was discussed with the patient in detail. If patient is able to successfully complete the post catheterization radial artery recovery without complication, and tolerates her evening meal, I feel she can be discharged this evening. I discussed her case with [facility] gastroenterology, and have tentatively made arrangements for her to have an outpatient EGD at [facility] on 11/16/2021, 10:30 AM arrival time. She will need to be n.p.o. after midnight the night before, and will need a wrecker driver to and from the procedure. Case Discussed with Dr Alcazar of the hospitalist service. At the time my assessment of the patient at 5:10 PM, her radial artery recovery was going as planned, she had a very minimal amount of ecchymosis of her wrist, and the radial band is being deflated as per protocol, she will complete recovery just after 6 PM. With the patient's permission, I called and discussed today's events with her daughter, Jessica, .
--- NOTE | 2021-11-14 17:56 | Discharge Summary ---
Date of Service November 14, 2021 Admission HPI Per Admitting Provider 71yo F who presents with EKG +for LBBB on eval for EGD, saw Dr. Sage today and reported history of increasing CP with extertion an dsome exertional dyspnea. Was given nitro and baby aspirin x4 which helped a little. Hx of gastritis/stomach inflammation on prior endoscopy. Chest pain is still present since coming over from cardiology office. 2-3/. Has had symptoms for more than 24 hours, pressure-like in quality and low sternum high epigastrium. No pain in the arm/neck Received ASA 81mg x4+nitro and was sent over. Refused ambulance, drove her over. Had similar pain, very intense nighttime pain Sep 20 with radiation in to the back. Lasted through the night and improved by the next morning. ?TN at that time. Has had reflux problems for 20 years. Current pain is low substernal, feels different than her prior reflux. Tight quality. In the last several days/weeks she does report that she has had some chest pain with exertion, recently has had an episode of dyspnea with exertion. No diapho resis. Brother has had triple bypass in 60s. Patient does not have a history of tobacco abuse. Treated for hypothyroidism, no hypertension Last stress echo 2018. Normal. NO LBBB in 2019. New EKG with LBBB. At bedside assessment continues 2-3 pain, no dyspnea. Medical History: Reviewed FHx: Brother with triple bipass in 60s. Medications: Reviewed Surgical History: Reviewed Allergies: Reviewed Social History: No tobacco product use, wine at communion only, no MM or recreational drug use. Code Status: Surrogate decision maker would be her . Full Code. Admission Exam Per Admitting Provider General: A&Ox3. NAD. Cooperative. HEENT: Atraumatic, normocephalic. Visual acuity grossly intact, hearing slightly impaired but grossly intact. Pulm: CTAB A&P. -wheezes, -rales, -rhonchi. Symmetrical chest rise. No increased work of breathing. No respiratory distress. Cardiac: RRR, -mrg. Radial pulses intact and symmetrical. Chest pain is not worsened by palpation overlying sternum or epigastrium. Abdominal: Nontender, nondistended, soft. BS present. Extremities: Warm, dry moving all extremities equally, sensation to soft touch intact in hands and feet bilaterally. Sales Engineering Manager strength 5/5, elbow flexion 5/5 bilaterally. Ankle dorsiflexion/plantar flexion 5/5. No pedal edema appreciated. Principal Diagnosis Noncardiac chest pain Discharge Exam General: A&Ox3. NAD. Cooperative. HEENT: Atraumatic, normocephalic. Visual acuity grossly intact, hearing slightly impaired but grossly intact. Pulm: CTAB A&P. -wheezes, -rales, -rhonchi. Symmetrical chest rise. No increased work of breathing. No respiratory distress. Cardiac: RRR, -mrg. Radial pulses intact and symmetrical. Abdominal: Persists with low sternal/high epigastric pressure not worsened by palpation nontender, nondistended, soft. BS present. Extremities: Right wrist with post procedure cleansing dye, radial pulse intact. No radial hematoma/swelling. Neurovascularly intact. Warm, dry moving all extremities equally, sensation to soft touch intact in hands and feet bilaterally. Sales Engineering Manager strength 5/5, elbow flexion 5/5 bilaterally. Ankle dorsiflexion/plantar flexion 5/5. No pedal edema appreciated Discharge Data Allergies Allergy/AdvReac Type Severity Reaction Status Date / Time Penicillins Allergy Mild RASH Unverified 11/14/21 13:15 pneumococcal vaccine Allergy Mild sore Verified 11/14/21 13:15 [From Prevnar 13 (PF)] swollen arm at injection site Cephalosporins Allergy Unknown Unknown Verified 11/14/21 13:15 nitrofurantoin Allergy Unknown Unknown Verified 11/14/21 13:15 metronidazole AdvReac Mild Nausea Verified 11/14/21 13:15 Sulfa (Sulfonamide AdvReac Mild VOMITING Unverified 11/14/21 13:15 Antibiotics) Consultations 11/14/21 12:30 ED Decision to Admit Stat 11/14/21 13:56 Consult Cardiology Routine Procedures Performed Operation Date: 11/14/21 14:30 Actual Procedures p Cath, Left with Cors and Vent - Gómez Lindo MD s Cineradiography w/Routine Exam - Gómez Lindo MD Ordered Studies 11/14/21 14:27 CL Cath Imgs for PACS use only Routine Findings: LM -Short, no significant disease LAD -large caliber, angiographically normal, distal vessel wraps around apex. Gives off 3 small diagonals without significant disease. Circumflex -medium caliber, gives off high large OM1 without significant disease. Remainder of AV groove circumflex without significant disease. RCA -dominant, medium caliber, angiographically normal LVEDP -7 Arterial Closure: TR band Summary: 1. Angiographically normal coronary arteries 2. Normal intracardiac filling pressure Recommendations: Further evaluation for noncardiac causes of current chest pain. Hospital Course (1) Chest pain: Shima is a 71-year-old female with a history of GERD, hypothyroidism, and IBS who presented with concern for a history of increasing anginal symptoms and substernal pressure with a new left bundle branch block on EKG. She was seen by cardiology and hospitalist medicine, her story was concerning for a s evere exacerbation of pain in August and possible exertional chest pain in the previous few weeks. Based on this an echo was obtained which was normal and did not show any underlying cardiomyopathy. Due to her symptoms and a new left bundle branch block she was recommended for cardiac catheterization. Underwent cardiac catheterization which was normal and did not show any coronary artery disease. Her case was discussed extensively with cardiology, was felt that she has noncardiac pain suspected GI in origin and was stable for discharge same day following radial artery recovery protocol. Her EGD was rescheduled for Thursday 11/16 and patient was discharged to follow-up with her outpatient providers and for additional GI work-up. To do as outpatient: 1. Routine follow-up with PCP 2. Complete EGD Thursday 11/16 3. Regular follow-up with cardiology annually, reassessment of symptoms and LBBB New LBBB, Episodic Angina, ?Exertional Dyspnea - Pt does have concerning history of increasing angina worst on Sep 20 and with some subsequent exertional chest pain and an episode of exertional dyspnea. Cardiology consulted, discussed with Dr. Garcia. EKG: Rate approximately 80, left bundle branch block QRS 148, QTc 453 - NPO pending potential cardiac eval -Defer heparinization at this time Nitropaste on admission without change in symptoms No leukocytosis, hemoglobin normal Admitting troponin normal, trend every 6 hours x3 Admitting creatinine 0.55, estimated GFR 94 Potassium being rechecked, inaccurate due to hemolysis. Goal potassium 4.0 Magnesium pending. Goal magnesium 2.0 Covid negative CXR: No acute cardiopulmonary disease TTE: Preserved EF, no cardiomyopathy appreciated Cardiac catheterization: No clinically significant coronary artery disease (2) GERD (gastroesophageal reflux disease): GERD History of heartburn on omeprazole Was pending EGD, was noted to have left bundle branch block prior to EGD and was referred for cardiac evaluation. Characterization of history and review above is what caused patient to present at recommendation of table games manager to the hospital for further evaluation Continued Protonix Famotidine twice daily Her EGD outpatient was rescheduled and patient was discharged to further GI follow-up at [facility] (3) Hypothyroidism: Hypothyroidism Continue Synthroid 50 mcg daily TSH/T4 pending at discharge (4) Irritable bowel syndrome: IBSC Continue MiraLAX Continue Citrucel (5) Anxiety: -Melatonin 5mg qhS for sleep Total Time Total Time Spent Total Time Spent (In Minutes): Time spend day of discharge 90 minutes including direct patient care, documentation, review of labs and images, and coordination of care. Discharge Plan Discharge Items Patient Disposition: Home - Self-Care Reason For Visit: CARDIAC EVAL, CHEST PAIN, NEW LBBB Discharge Diagnosis: Noncardiac chest pain Activity: Per Instructions section Non-emergency contact: Primary Care Provider, Search Strategist and Ski Instructor Call non-emergency contact if: you have any medication questions, your symptoms worsen, your pain is not controlled and you have a fever Follow-up/Referrals: Nallely Lan CRNP [Primary Care Provider] - Phi Garcia DO [Search Strategist] - Diet: Regular Addtl Attending Provider Instructions: You are seen in the hospital for a new left bundle branch block and concern for chest/substernal pain concerning for potential coronary disease/heart attack. You had a echocardiogram performed which showed normal wall motion, and a normal pumping function (ejection fraction 55-60%). Your case was discussed with cardiology, and a cardiac catheterization using a right radial artery approach was performed. Your cardiac catheterization did not show any significant coronary artery disease. Your symptoms of fullness, pressure, and epigastric discomfort were reviewed and felt to be nonanginal/not due to coronary artery disease and your heart ultrasound did not show any underlying cardiomyopathy. Copies of your reports are being sent to your primary care providers. It was offered for you to remain in the hospital for observation overnight and discharge in the morning. You preferred to be discharged following your procedure. This was discussed with cardiology who felt that based on your uncomplicated work-up, reassuring echocardiogram, and normal cardiac catheterization that you were okay for discharge following post catheterization radial artery recovery/TR band removal. Additional instructions have been provided for care of your right wrist by cardiology as noted below. A appointment for your EGD has been made for you at [facility] on 11/16/2021 at 10:30 AM. Need to be n.p.o. before this procedure, and will require a catshovel driver to and from this procedure. Please call your primary care physician to schedule a follow-up appointment for within 1-2 weeks. If you develop any new or worsening symptoms including fever, chills, sweats, chest pain, chest pressure, difficulty breathing, uncontrolled nausea/vomiting, rash, wheezing, passing out or nearly passing out, bleeding, black/bloody bowel movements, or other new or concerning symptoms please call your primary care physician, or call 911 for re-evaluation in the emergency department if you are very concerned. Addtl Filler Wiper Provider Instructions: Patient is scheduled for EGD endoscopy, [facility] 11/16/2021, 10:30 AM arrival. No food or drink after midnight the night prior to the procedure ( night) May take levothyroxine with a sip of water in the morning of the procedure 11/16/2021 as per usual routine Patient will need a catshovel driver to and from the procedure. Pending Studies at Discharge: No Stand-Alone Forms: My [facility] [email or web address], Smoking Cessation Medications and DC Order Prescriptions: Continued levothyroxine 50 mcg tablet 50 mcg PO DAILY Qty: 90 RF: 3 clobetasol 0.05 % cream See Rx Instructions .ROUTE .COMPLEX PRN (Reason: rash) Qty: 15 RF: 1 omeprazole 20 mg capsule,delayed release(DR/EC) 20 mg PO .COMPLEX RF: 0 diclofenac sodium 1 % gel 2 g TOP .COMPLEX PRN (Reason: Pain) Qty: 100 RF: 0 Ca [id number] bor 250 mg calcium -500 unit tablet 1 tab PO BID RF: 0 fexofenadine 180 mg tablet 180 mg PO DAILY RF: 0 polyethylene glycol 3350 [Miralax] 17 gram/dose powder See Rx Instructions PO DAILY PRN (Reason: Constipation) RF: 0 multivitamin tablet 1 tab PO DAILY RF: 0 cholecalciferol (vitamin D3) 25 mcg (1,000 unit) capsule 1,000 unit PO DAILY RF: 0 melatonin 5 mg tablet 5 mg PO HS RF: 0 [employer] 1.5 billion cell capsule 1 cap PO DAILY Qty: 30 RF: 0 echinacea 380 mg capsule 760 mg PO BID Qty: 60 RF: 0 Citrucel 500 mg tablet 500 mg PO BID Qty: 60 RF: 0 acetaminophen 500 mg Tablet 500 mg PO Q6H PRN (Reason: Pain) RF: 0 bacitracin zinc-polymyxin B 500-10,000 unit/gram Ointment 1 applic TOPICAL Q12H PRN (Reason: Prophylaxis) RF: 0 Discharge Orders: Discharge Order (Routine); Ordered 11/14/21 Ordered By: Jesus Alcazar Admission Data Admit Date/Time: 11/14/21 13:37 Attending Provider: Jesus Alcazar Admit Provider: Jesus Alcazar Primary Care Provider: Nallely Lan Other Providers: Jesus Alcazar ; Phi Garcia Coding Level of Care Code OBSERV/HOSP SAME DATE LVL 2 Diagnoses Chest pain R07.9 GERD (gastroesophageal reflux disease) K21.9 Hypothyroidism E03.9 Irritable bowel syndrome K58.9 Anxiety F41.9
[2021-11-14 20:59] LABS: Lyme Ab IgG w/WB Rflx Negative (Negative)
[2021-11-14] MEDS ORDERED: METHYLCELLULOSE POWDER 454 GM JAR PO SCH (21:00)
[2021-11-14 21:26] LABS: Lyme Ab IgM w/WB Rflx Equivocal (Negative)
[2021-11-15] MEDS ORDERED: LEVOTHYROXINE SODIUM 50 MCG TABLET PO SCH (06:30)
[2021-11-15] MEDS ORDERED: MULTIVITAMIN TAB PO SCH (09:00)
[2021-11-15] MEDS ORDERED: CALCIUM 600MG + VIT D 400 IU TAB PO SCH (09:00)
[2021-11-15] MEDS ORDERED: CHOLECALCIFEROL 1,000 UNITS 25 MCG TAB PO SCH (09:00)
[2021-11-20 01:55] LABS: 18KDIGG Band NON-REACTIVE; 23KDIGG Band NON-REACTIVE; 23KDIGM Band NON-REACTIVE; 28KDIGG Band NON-REACTIVE; 30KDIGG Band NON-REACTIVE; 39KDIGG Band NON-REACTIVE; 39KDIGM Band NON-REACTIVE; 41KDIGG Band NON-REACTIVE; 41KDIGM Band NON-REACTIVE; 45KDIGG Band NON-REACTIVE; 58KDIGG Band NON-REACTIVE; 66KDIGG Band NON-REACTIVE; 93KDIGG Band NON-REACTIVE; Lyme Antibodies, WB IgG NEGATIVE (NEGATIVE); Lyme Antibodies, WB IgM NEGATIVE (NEGATIVE)
== END 2021-11-14 19:30 | disposition home or self-care (01) ==
LOC: ED 11:45 → EDINP 11:45 → 2S 16:27

== ENCOUNTER 2024-10-17 17:13 | Inpatient (IN) ==
--- NOTE | 2024-10-17 18:11 | Emergency Department Note ---
Impression & Plan Abdominal pain Admission ED Provider Note HPI: History obtained from patient. The patient is a 74-year-old female who presents the emergency department with a chief complaint of upper abdominal pain and diarrhea as well as nausea. Patient denies any vomiting. Patient states that she developed the symptoms earlier this morning. Patient states that she is on doxycycline, day #6, for respiratory symptoms. Patient states that she believes she might be having a reaction to the doxycycline. On arrival here to the ED the patient is hemodynamically stable, she otherwise appears to be in no acute distress. ROS: - Per HPI Differential Diagnosis: Viral gastroenteritis, small bowel obstruction, acute cholecystitis, peptic ulcer disease, acute pancreatitis, amongst other potential pathologies. *Outpatient medications and allergy history reviewed. PE: General: Alert HEENT: Normocephalic, trachea midline Eyes: Extraocular eye movement is intact, no scleral erythema Pulmonary: Clear to auscultation bilaterally, no wheezing Cardio: Regular rate and rhythm GI: Abdomen is soft to palpation, moderate epigastric tenderness to palpation without guarding or rigidity : No suprapubic tenderness MSK: No evidence of trauma or malformation of the extremities, no edema Skin: No evidence of rash Neuro: Alert, no focal deficits Psychiatric: Cooperative INDEPENDENT INTERPRETATIONS: chiller tender: (As interpreted by myself): - An order was placed for continuous cardiac monitoring - Patient was noted to be in sinus rhythm with a rate of 80 EKG: (As interpreted by myself): Rate: 82 Rhythm: Normal sinus rhythm Intervals: QRS 146 ms, otherwise within normal limits (known left bundle branch block) ST changes: No ST elevation Time: 1818 Interventions provided in ED: -IV fluid bolus, IV Protonix bolus and drip Medical Decision Making: IV was established and lab work obtained, patient was placed on butt welder. Lab work shows a leukocytosis at 16.3, hemoglobin is normal, platelet count is normal, CMP does not show any acute/critical findings. Troponin is negative, EKG shows sinus rhythm with a known left bundle branch block. Urinalysis shows 2+ blood, no evidence of infection. CT imaging of the abdomen pelvis shows concerning findings for possible gastric outlet obstruction, possible malignancy in the mid stomach, versus possible GI bleeding. Patient's hemoglobin is stable and she denies any hematemesis but states she does have a history of peptic ulcers disease. Patient was therefore placed on Protonix bolus and drip. I discussed the patient's presentation and CT imaging findings with on-call gastroenterology, Dr. Walker, he is in agreement for consultation and states he would plan to perform an EGD tomorrow morning. He states that the patient has not actually had any active vomiting we can defer NG tube unless she does develop vomiting. Case was then discussed with the on-call hospitalist, Dr. Ryan, and the patient was placed for admission in stable condition. Patient was in agreement to this plan. Consultants/Discussions held with other healthcare providers: -Gastroenterology, Dr. Walker -Hospitalist, Dr. Ryan Disposition discussion held by myself with: -Patient Diagnosis: 1. Epigastric pain, acute 2. Findings concerning for gastric outlet obstruction on CT imaging 3. Leukocytosis, acute 4. Nausea, acute Disposition: Admission Christopher Ortiz DO Emergency Medicine Past Med/Surg History Problem List (Updated 10/17/24 @ 23:47 by Christopher Ortiz DO) Abdominal pain (Acute) Diarrhea Hydronephrosis of right kidney Hematuria Hyponatremia Leukocytosis Gastric outlet obstruction Nasal congestion (Acute) Long-term current use of proton pump inhibitor therapy Palpitations GERD (gastroesophageal reflux disease) (Acute) Anxiety controlled with exercise Vitamin D insufficiency Left bundle-branch block, unspecified followed by [facility] cardio, cardiac cath 11/20- Irritable bowel syndrome has mostly Diarrhea but has also had constipation Depression Hypothyroidism Psoriasis Osteoporosis with fracture (Chronic) Elevated serum globulin level Medical History Vulvar irritation Atrophic vulvovaginitis Gastric ulcer Vertigo Allergic rhinitis History of hematuria Microscopic hematuria Seborrheic keratosis Surgical History History of tubal ligation History of laparoscopy tubal ligation History of dilation and curettage History of cryosurgery of cervix - for incompetent cervix for , not abnormal pap per pt Family History Grandmother (Paternal) Breast cancer Brother Prostate cancer Heart disease Myocardial infarction Denies family history of Ovarian cancer Colorectal cancer Uterine cancer Social History Smoking Status: Never smoker Second Hand Exposure: No; Do You Dip or Chew Tobacco: No; Hx Alcohol Use: Yes Alcohol type: wine Hx Substance Use: No Preferred Language: Korean Communication Ability: Effective Visual Impairment: Limited Hearing Ability: Use of Hearing Aid Web Ui Designer Required: No Beliefs That Will Affect Care: None marital status: Current Living Situation: Spouse current occupational status: employed, retired and 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 How many Children do You have: 2 Feels Safe at Home: Yes Safety Concerns: Feels Safe At This Time Childhood Exposure to Second-Hand Smoke: No Diet: regular caffeine: Yes (Hot Chocolate and tea.) during the past year weight has: remained stable Dental Care, Regularly: Yes Physical Activity Frequency: 5-6 Times per Week Seatbelt Use: always Sunscreen Use: Yes Do you think of yourself as: straight/heterosexual Sexual Activity: has been sexually active, but not for at least 12 months Gender Identity: Female Assistive Devices: Glasses and Hearing Aid - Bilateral Allergies Allergies Allergy/AdvReac Type Severity Reaction Status Date / Time Penicillins Allergy Mild RASH Verified 10/11/24 10:32 pneumococcal vaccine Allergy Mild sore Verified 10/11/24 10:32 [From Prevnar 13 (PF)] swollen arm at injection site Cephalosporins Allergy Unknown Unknown Verified 10/11/24 10:32 nitrofurantoin Allergy Unknown Unknown Verified 10/11/24 10:32 metronidazole AdvReac Mild Nausea Verified 10/11/24 10:32 Sulfa (Sulfonamide AdvReac Mild VOMITING Verified 10/11/24 10:32 Antibiotics) Home Meds Home Medications Medication Instructions Recorded Confirmed calcium 250 mg-D3 500 unit-vit K 1 tab PO BID 03/19/19 10/17/24 25 klu-xynlwsdcu-vynzds-borate tablet fexofenadine 180 mg tablet 180 mg PO DAILY 03/19/19 10/17/24 multivitamin 1 tab PO DAILY 03/19/19 10/17/24 polyethylene glycol 3350 17 See Rx Instructions PO DAILY PRN 03/19/19 10/17/24 gram/dose oral powder (Miralax) Constipation acetaminophen 500 mg tablet 500 mg PO Q6H PRN Pain 11/14/21 10/17/24 bacitracin zinc 500 unit-polymyxin 1 applic topical Q12H PRN 11/14/21 10/17/24 B 10,000 unit/gram topical ointment Prophylaxis echinacea 380 mg capsule 760 mg PO DAILY 10/16/22 10/17/24 mv-min-vit C-ascorb 4 tab PO UNKNOWN PRN PRN 06/04/23 10/17/24 Pq-Tgb-Epq-herb #124 334 mg-1.7 mg chewable tablet (Airborne (ascorbate sodium)) omeprazole 20 mg capsule,delayed 20 mg PO BID Acid Reflux 11/21/23 10/17/24 release melatonin 3 mg capsule 3 mg PO HS PRN Sleep 07/09/24 10/17/24 zoledronic acid 5 mg/100 mL in 1 ea IV YEARLY 07/09/24 10/17/24 mannitol 5 %-water intravenous piggybck (Reclast) docusate sodium 100 mg capsule 100 mg PO BID 09/03/24 10/17/24 (Colace) Previous Rx's Medication Instructions Recorded diclofenac sodium 1 % topical gel 2 g topical .COMPLEX PRN Pain #100 11/13/21 grams levothyroxine 50 mcg tablet 50 mcg PO DAILY #90 tabs 11/21/23 clobetasol 0.05 % topical cream See Rx Instructions .Route 06/24/24 .COMPLEX PRN rash #15 grams doxycycline hyclate 100 mg tablet 100 mg PO BID 7 days #14 tabs 10/11/24 Results & Data (ED) Vital Signs Vital Signs - 24 hr 10/17/24 17:35 10/17/24 18:24 10/17/24 18:31 Temperature 37.2 C Temperature Source Oral Pulse Rate 88 77 Pulse Rate [Apical] Respiratory Rate 18 Respiratory Effort / Characteristics Non-Labored Spontaneous Respiratory Depth Normal Respiratory Pattern Regular Blood Pressure 138/84 Blood Pressure [Left Arm] Blood Pressure Mean 102 Blood Pressure Mean [Left Arm] Pulse Oximetry 97 96 Oxygen Delivery Method Room Air Room Air Sepsis Recent Fever Within 48 Hours No Sepsis New/Unexplained Change in Mental Status No Sepsis Action Taken by Nursing No Action Required 10/17/24 19:14 10/17/24 21:00 Temperature Temperature Source Pulse Rate Pulse Rate [Apical] 76 79 Respiratory Rate 18 18 Respiratory Effort / Characteristics Respiratory Depth Respiratory Pattern Blood Pressure Blood Pressure [Left Arm] 139/60 129/68 Blood Pressure Mean Blood Pressure Mean [Left Arm] 86 88 Pulse Oximetry 97 97 Oxygen Delivery Method Room Air Room Air Sepsis Recent Fever Within 48 Hours Sepsis New/Unexplained Change in Mental Status Sepsis Action Taken by Nursing Laboratory Data 10/17/24 18:30 10/17/24 18:30 Lab Results 10/17/24 10/17/24 Range/Units 18:30 19:19 WBC 16.31 H (4.8-10.8) K/ul RBC 4.71 (4.20-5.40) M/uL Hgb 14.1 (12.0-16.0) g/dl Hct 42.5 (37.0-47.0) % MCV 90.2 (80.0-100.0) fL MCH 29.9 (25.0-34.0) pg MCHC 33.2 (32.0-36.0) g/dL RDW Std Deviation 37.9 (36.4-46.3) fL RDW Coeff of Lance 11.5 (11.5-14.5) % Plt Count 300 (130-400) K/uL MPV 9.4 (9.4-12.4) fL Immature Gran % (Auto) 0.4 % Neut % (Auto) 90.7 % Lymph % (Auto) 4.9 % [place] % (Auto) 3.1 % Eos % (Auto) 0.7 % Baso % (Auto) 0.2 % Neut # (Auto) 14.80 H (1.40-6.50) K/uL Lymph # (Auto) 0.80 L (1.20-3.40) K/uL [place] # (Auto) 0.50 (0.11-0.59) K/uL Eos # (Auto) 0.12 (0.00-0.50) K/uL Baso # (Auto) 0.03 (0.00-0.20) K/uL Immature Gran # (Auto) 0.06 (0.01-0.20) K/uL Sodium 132 L (136-145) mmol/L Potassium 3.6 (3.5-5.1) mmol/L Chloride 99 (98-107) mmol/L Carbon Dioxide 28 (21-32) mmol/L Anion Gap 5 (3-11) BUN 13 (6-23) mg/dl Creatinine 0.56 L (0.6-1.2) mg/dl Est Cr Clr Drug Dosing 76.3 ml/min eGFR 95.71 BUN/Creatinine Ratio 23.2 H (10-20) Glucose 116 H (70-99(Fasting)) mg/dl Calcium 8.7 (8.6-10.3) mg/dl Total Bilirubin 0.4 (0.2-1.0) mg/dl AST 24 (13-39) U/L ALT 17 (7-52) U/L Alkaline Phosphatase 57 (34-104) U/L Troponin I High Sens 4.2 (0-14) pg/ml Total Protein 7.0 (6.0-8.3) gm/dl Albumin 4.0 (3.4-5.0) gm/dl Globulin 3.0 (2.5-4.0) gm/dl Albumin/Globulin Ratio 1.3 (0.9-2) Lipase 19 (11-82) U/L Urine Color Yellow Urine Appearance Clear (Clear) Urine pH 6.5 (4.5-7.5) Ur Specific [place] 1.005 (1.000-1.030) Urine Protein Negative (Negative) Urine Glucose (UA) Negative (Negative) Urine Ketones Negative (Negative) Urine Blood 2+ H (Negative) Urine Nitrite Negative (Negative) Urine Bilirubin Negative (Negative) Urine Urobilinogen Negative (Negative) Ur Leukocyte Esterase Negative (Negative) Urine WBC (Auto) 0-5 (0-5) /hpf Urine RBC (Auto) >20 H (0-2) /hpf U Hyaline Cast (Auto) 0-2 (0-2) /lpf U Epithel Cells (Auto) 0-2 (0-2) /hpf Urine Bacteria (Auto) None Seen (None Seen) Administered Medications Pantoprazole Sodium 40 mg/ (Dextrose) 100 mls @ 20 mls/hr IV Q5H ANI Stop: 11/16/24 21:14 Last Admin: 10/17/24 22:33 Dose: 8 mg/hr, 20 mls/hr Documented By: JESSICA Sodium Chloride (Nss) 1,000 mls @ 80 mls/hr IV .[id number] ANI Stop: 10/18/24 10:29 Last Admin: 10/17/24 22:15 Dose: 80 mls/hr Documented By: JESSICA Discontinued Medications Sodium Chloride (Nss) 1,000 mls @ 999 mls/hr IV .Q1H1M STA Stop: 10/17/24 19:07 Last Infusion: 10/17/24 21:12 Dose: Infused Documented By: Admin: 10/17/24 18:29 Dose: 999 mls/hr Documented By: GEORGES Pantoprazole Sodium 80 mg/ (Dextrose) 120 mls @ 480 mls/hr IV NOW ONE Stop: 10/17/24 21:14 Last Infusion: 10/17/24 22:33 Dose: Infused Documented By: Admin: 10/17/24 22:15 Dose: 480 mls/hr Documented By: JESSICA Ioversol (Optiray 320 100ml) 92 ml IV ONCE ONE Stop: 10/17/24 19:41 Last Admin: 10/17/24 19:40 Dose: 92 ml Documented By: ADIEL Pantoprazole Sodium (Pantoprazole Bolus/Drip) 1 each IV NOW STA Stop: 10/17/24 21:01 Last Admin: 10/17/24 22:16 Dose: 1 each Documented By: JESSICA Imaging Data Radiologist's Impression: Abdomen/Pelvis CT 10/17/24 18:07 Exam(s): CT ABDOMEN + PELVIS With Contrast IV Amt: OPTIRAY 320 92ML EXAM: CT Abdomen and Pelvis With Intravenous Contrast CLINICAL HISTORY: Upper Abdominal Pain. TECHNIQUE: Axial computed tomography images of the abdomen and pelvis with intravenous contrast. CTDI is 16.62 mGy and DLP is 686.3 mGy-cm. Automated exposure control was utilized for the study. A dose lowering technique was utilized adhering to the principles of ALARA. CONTRAST: Patient received OPTIRAY 320 92ML of IV contrast COMPARISON: No relevant prior studies available. FINDINGS: Lung bases: Unremarkable. No mass. No consolidation. ABDOMEN: Liver: Unremarkable. No mass. Gallbladder and bile ducts: Unremarkable. No calcified stones. No ductal dilation. Pancreas: Unremarkable. No mass. No ductal dilation. Spleen: Unremarkable. No splenomegaly. Adrenals: Unremarkable. No mass. Kidneys and ureters: Mild right hydronephrosis. No visualized nephrolithiasis. Simple appearing left renal cysts, no follow-up is needed. Stomach and bowel: The small bowel and colon are fluid-filled without obstruction. Distended stomach with focal thickening of the mid stomach. There is mild layering hyperdense material in the stomach. PELVIS: Appendix: Normal appendix. Bladder: Unremarkable. No mass. Reproductive: Unremarkable as visualized. ABDOMEN and PELVIS: Intraperitoneal space: Unremarkable. No free air. No significant fluid collection. Bones/joints: There are degenerative changes of the spine. No acute fracture. No dislocation. Soft tissues: Unremarkable. Vasculature: Mild atherosclerosis. No abdominal aortic aneurysm. Lymph nodes: Unremarkable. No enlarged lymph nodes. IMPRESSION: 1. Distended stomach with focal thickening of the mid stomach. This is concerning for gastric outlet obstruction. The thickening could relate to malignancy. There is mild layering hyperdense material in the stomach. Cannot exclude GI bleed. Recommend further evaluation with EGD. 2. The small bowel and colon are fluid-filled without obstruction. This likely represent enterocolitis. 3. Mild right hydronephrosis. No visualized nephrolithiasis. Electronically signed by: Stephanie Green MD 10/17/24 20:44 PM Discharge Plan Visit Data Chief Complaint: Abdominal Pain Stated Complaint: REACTION TO MEDICINE, DIARRHEA, ABD PAIN ED Provider: Christopher Ortiz Discharge Problem: Abdominal pain Patient Disposition: Admitted As Inpatient Discharge Instructions Interventions: ED Discharge Assessment Last Done: 10/17/24 22:35
[2024-10-17] MEDS: SODIUM CHLORIDE 0.9% 1,000 ML IV STA (18:29)
[2024-10-17 19:10] LABS: Hematocrit (blood only) 42.5 % (37.0-47.0); Hemoglobin 14.1 g/dl (12.0-16.0); Mean Corpuscular Hemoglobin 29.9 pg (25.0-34.0); Mean Corpuscular Hgb Conc 33.2 g/dL (32.0-36.0); Mean Corpuscular Volume 90.2 fL (80.0-100.0); Mean Platelet Volume 9.4 fL (9.4-12.4); Platelet Count 300 K/uL (130-400); RDW Coefficient of Variation 11.5 % (11.5-14.5); RDW Standard Deviation 37.9 fL (36.4-46.3); Red Blood Count 4.71 M/uL (4.20-5.40); White Blood Count 16.31 K/ul (4.8-10.8)
[2024-10-17 19:20] LABS: Albumin Globulin Ratio 1.3 (0.9-2); BUN Creatinine Ratio 23.2 (10-20); Bilirubin,Total 0.4 mg/dl (0.2-1.0); Calcium 8.7 mg/dl (8.6-10.3); Creatinine Clr Calc Pharmacy 76.3 ml/min; Potassium 3.6 mmol/L (3.5-5.1)
[2024-10-17 19:25] LABS: Troponin I High Sensitivity 4.2 pg/ml (0-14)
[2024-10-17 19:27] LABS: Basophils # (auto) 0.03 K/uL (0.00-0.20); Basophils % (auto) 0.2 %; Eosinophils # (auto) 0.12 K/uL (0.00-0.50); Eosinophils % (auto) 0.7 %; Immature Granulocytes # (auto) 0.06 K/uL (0.01-0.20); Immature Granulocytes % (auto) 0.4 %; Lymphocytes % (auto) 4.9 %; Monocytes % (auto) 3.1 %; Neutrophils % (auto) 90.7 %
[2024-10-17] MEDS: OPTIRAY 320 100ml IV ONE (19:40)
[2024-10-17 19:50] LABS: Appearance Urine Clear (Clear); Bacteria Urine Automated None Seen (None Seen); Bilirubin Urine Negative (Negative); Blood Urine 2+ (Negative); Cast Urine Automated 0-2 /lpf (0-2); Color Urine Yellow; Epithelial Cell Urine Auto 0-2 /hpf (0-2); Glucose Urine UA Negative (Negative); Ketones Urine Negative (Negative); Leukocyte Esterase Urine Negative (Negative); Nitrite Urine Negative (Negative); Protein Urine Negative (Negative); RBC Urine Automated >20 /hpf (0-2); Specific Gravity Urine 1.005 (1.000-1.030); Urobilinogen Urine Negative (Negative); WBC Urine Automated 0-5 /hpf (0-5); pH Urine 6.5 (4.5-7.5)
--- NOTE | 2024-10-17 20:44 | CT Scan Report ---
Exam(s): CT ABDOMEN + PELVIS With Contrast IV Amt: OPTIRAY 320 92ML EXAM: CT Abdomen and Pelvis With Intravenous Contrast CLINICAL HISTORY: Upper Abdominal Pain. TECHNIQUE: Axial computed tomography images of the abdomen and pelvis with intravenous contrast. CTDI is 16.62 mGy and DLP is 686.3 mGy-cm. Automated exposure control was utilized for the study. A dose lowering technique was utilized adhering to the principles of ALARA. CONTRAST: Patient received OPTIRAY 320 92ML of IV contrast COMPARISON: No relevant prior studies available. FINDINGS: Lung bases: Unremarkable. No mass. No consolidation. ABDOMEN: Liver: Unremarkable. No mass. Gallbladder and bile ducts: Unremarkable. No calcified stones. No ductal dilation. Pancreas: Unremarkable. No mass. No ductal dilation. Spleen: Unremarkable. No splenomegaly. Adrenals: Unremarkable. No mass. Kidneys and ureters: Mild right hydronephrosis. No visualized nephrolithiasis. Simple appearing left renal cysts, no follow-up is needed. Stomach and bowel: The small bowel and colon are fluid-filled without obstruction. Distended stomach with focal thickening of the mid stomach. There is mild layering hyperdense material in the stomach. PELVIS: Appendix: Normal appendix. Bladder: Unremarkable. No mass. Reproductive: Unremarkable as visualized. ABDOMEN and PELVIS: Intraperitoneal space: Unremarkable. No free air. No significant fluid collection. Bones/joints: There are degenerative changes of the spine. No acute fracture. No dislocation. Soft tissues: Unremarkable. Vasculature: Mild atherosclerosis. No abdominal aortic aneurysm. Lymph nodes: Unremarkable. No enlarged lymph nodes. IMPRESSION: 1. Distended stomach with focal thickening of the mid stomach. This is concerning for gastric outlet obstruction. The thickening could relate to malignancy. There is mild layering hyperdense material in the stomach. Cannot exclude GI bleed. Recommend further evaluation with EGD. 2. The small bowel and colon are fluid-filled without obstruction. This likely represent enterocolitis. 3. Mild right hydronephrosis. No visualized nephrolithiasis. Electronically signed by: Stephanie Green MD 10/17/24 20:44 PM
--- NOTE | 2024-10-17 21:24 | History & Physical Report ---
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 She presents today due to diarrhea that began this morning that she felt was secondary to a doxycycline allergy. She is being admitted due to gastric outlet obstruction, n.p.o. status, GI consulted for possible EGD 10/18. #Gastric outlet obstruction hx of irritable bowel disease and GERD CTAP showing distended stomach with focal thickening of mid stomach, concerning for gastric outlet obstruction VS malignancy, mild layering hyperdense material in stomach but cannot exclude GI bleed - no obstruction of colon or small bowel Patient did have a EGD in 2021 that showed nonbleeding gastric ulcer, no masses seen Does have familial history of stomach cancer with maternal grandfather N.p.o. IV pantoprazole drip started in ED Zofran and Tylenol as needed Gentle hydration with IVF overnight GI consulted, would anticipate EGD 10/18 Defer NG tube at this time as patient nondistended, denies abdominal pain #diarrhea possibly 2/2 to doxycycline use discontinue doxycycline, only had 2 doses left Stool cultures ordered #leukocytosis WBC 16.3 on admission Suspect 2/2 colitis Defer ABX use at this time, Supportive care as above #Hyponatremia Sodium of 132 on admission Suspect 2/2 hypotonic hyponatremia with recent diarrhea 1L NSS bolus in ED, 1L gentle resuscitation overnight could consider urine osmole, serum osmole, urine sodium if hyponatremia does not resolve with IV fluids Trend BMP #hematuria/ hydronephrosis right kidney Patient with microscopic hematuria for 30+ years UA on admission showing >20 RBCs denies urinary symptoms or flank pain CTAP showing mild right hydronephrosis, no visualized nephrolithiasis consult urology Chronic stable diagnoses: hypothyroidism - hold levothyroxine with NPO osteoporosis - Reclast Q yearly - most recent in aug 2024 VTE ppx: SCDs; defer chemical ppx with possible surgical management above Diet: NPO Dispo: Med surg Admission and Anticipated Discharge Date Admission Date: 10/17/24 History of Present Illness Chief Complaint: abd pain Primary Care Provider: PAULINA Denson 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 She presents today due to diarrhea that began this morning that she felt was secondary to a doxycycline allergy. She was recently seen by her PCP for a URI and was treated with prednisone and doxycycline; she was on day 6 of doxycycline, to finish course 10/18. She stated that this morning when she woke up she began with some abdominal pain and diarrhea, last episode at 1620 today. She also has had some belching, nausea, however denies vomiting. She stated her upper respiratory symptoms have been improving. She does have a past history of irritable bowel disease, had a EGD in 2021 which showed a nonbleeding gastric ulcer, no masses seen. She does have a familial history of stomach cancer with her maternal grandfather. Patient denies fever, dysuria, gross hematuria, melena, blood in stool, abd distention. She does endorse chronic chills, has hypothyroidism. She also endorses chronic urinary urgency and increasing frequency, no acute changes. 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 She does not use nicotine products or drink alcohol. She denies past history of CVA or DM. She did take her a.m. medications today but not her evening doses; will hold on admission due to n.p.o. status. She wishes to be full code at this time. Allergies Allergy/AdvReac Type Severity Reaction Status Date / Time Penicillins Allergy Mild RASH Verified 10/11/24 10:32 pneumococcal vaccine Allergy Mild sore Verified 10/11/24 10:32 [From Prevnar 13 (PF)] swollen arm at injection site Cephalosporins Allergy Unknown Unknown Verified 10/11/24 10:32 nitrofurantoin Allergy Unknown Unknown Verified 10/11/24 10:32 metronidazole AdvReac Mild Nausea Verified 10/11/24 10:32 Sulfa (Sulfonamide AdvReac Mild VOMITING Verified 10/11/24 10:32 Antibiotics) Home Medications Medication Instructions Recorded Confirmed Type calcium 250 mg-D3 500 unit-vit K 1 tab PO BID 03/19/19 10/17/24 History 25 ype-ntfcvhnxf-wtsdya-borate tablet fexofenadine 180 mg tablet 180 mg PO DAILY 03/19/19 10/17/24 History multivitamin 1 tab PO DAILY 03/19/19 10/17/24 History polyethylene glycol 3350 17 See Rx Instructions PO DAILY PRN 03/19/19 10/17/24 History gram/dose oral powder (Miralax) Constipation diclofenac sodium 1 % topical gel 2 g topical .COMPLEX PRN Pain #100 11/13/21 10/17/24 Rx grams acetaminophen 500 mg tablet 500 mg PO Q6H PRN Pain 11/14/21 10/17/24 History bacitracin zinc 500 unit-polymyxin 1 applic topical Q12H PRN 11/14/21 10/17/24 History B 10,000 unit/gram topical ointment Prophylaxis echinacea 380 mg capsule 760 mg PO DAILY 10/16/22 10/17/24 History mv-min-vit C-ascorb 4 tab PO UNKNOWN PRN PRN 06/04/23 10/17/24 History Jd-Ixf-Qbd-herb #124 334 mg-1.7 mg chewable tablet (Airborne (ascorbate sodium)) levothyroxine 50 mcg tablet 50 mcg PO DAILY #90 tabs 11/21/23 10/17/24 Rx omeprazole 20 mg capsule,delayed 20 mg PO BID Acid Reflux 11/21/23 10/17/24 History release clobetasol 0.05 % topical cream See Rx Instructions .Route 06/24/24 10/17/24 Rx .COMPLEX PRN rash #15 grams melatonin 3 mg capsule 3 mg PO HS PRN Sleep 07/09/24 10/17/24 History zoledronic acid 5 mg/100 mL in 1 ea IV YEARLY 07/09/24 10/17/24 History mannitol 5 %-water intravenous piggybck (Reclast) docusate sodium 100 mg capsule 100 mg PO BID 09/03/24 10/17/24 History (Colace) doxycycline hyclate 100 mg tablet 100 mg PO BID 7 days #14 tabs 10/11/24 10/17/24 Rx Past Med/Surg History Problem List (Updated 10/17/24 @ 23:47 by Christopher Ortiz DO) Abdominal pain (Acute) Diarrhea Hydronephrosis of right kidney Hematuria Hyponatremia Leukocytosis Gastric outlet obstruction Nasal congestion (Acute) Long-term current use of proton pump inhibitor therapy Palpitations GERD (gastroesophageal reflux disease) (Acute) Anxiety controlled with exercise Vitamin D insufficiency Left bundle-branch block, unspecified followed by [facility] cardio, cardiac cath 11/20- nl Irritable bowel syndrome has mostly Diarrhea but has also had constipation Depression Hypothyroidism Psoriasis Osteoporosis with fracture (Chronic) Elevated serum globulin level Medical History Vulvar irritation Atrophic vulvovaginitis Gastric ulcer Vertigo Allergic rhinitis History of hematuria Microscopic hematuria Seborrheic keratosis Surgical History History of tubal ligation History of laparoscopy tubal ligation History of dilation and curettage History of cryosurgery of cervix - for incompetent cervix for , not abnormal pap per pt Family History Grandmother (Paternal) Breast cancer Brother Prostate cancer Heart disease Myocardial infarction Denies family history of Ovarian cancer Colorectal cancer Uterine cancer Social History Smoking Status: Never smoker Second Hand Exposure: No; Do You Dip or Chew Tobacco: No; Hx Alcohol Use: Yes Alcohol type: wine Hx Substance Use: No Preferred Language: Mozambican Communication Ability: Effective Visual Impairment: Limited Hearing Ability: Use of Hearing Aid 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 How many Children do You have: 2 Feels Safe at Home: Yes Safety Concerns: Feels Safe At This Time Childhood Exposure to Second-Hand Smoke: No Diet: regular caffeine: Yes (Hot Chocolate and tea.) during the past year weight has: remained stable Dental Care, Regularly: Yes Physical Activity Frequency: 5-6 Times per Week Seatbelt Use: always Sunscreen Use: Yes Do you think of yourself as: straight/heterosexual Sexual Activity: has been sexually active, but not for at least 12 months Gender Identity: Female Assistive Devices: Glasses and Hearing Aid - Bilateral Review of Systems Review of Systems: see HPI Physical Exam Physical Exam: The patient is awake, alert and oriented 3, well developed and well nourished, normocephalic and atraumatic, in no acute distress. Non-toxic appearing. HEENT- EOMI, mucous membranes moist. Hearing grossly intact. Heart-normal S1 and S2. No murmurs, rubs or gallops. Lungs-clear bilaterally, no respiratory distress, no accessory muscle use. Abdomen-normal bowel sounds and soft. No ascites noted. Non-tender. No distention. Extremities- no clubbing, cyanosis, or edema. Rheumatologic-normal range of motion. Psychiatric-normal affect. Results & Data Results & Data Vital Signs (Past 12 Hours) Vital Signs Temp Pulse Pulse Resp BP BP Pulse Ox 10/17/24 19:14 76 18 139/60 97 10/17/24 18:31 96 10/17/24 18:24 77 10/17/24 17:35 37.2 C 88 18 138/84 97 O2 Del Method 10/17/24 19:14 Room Air 10/17/24 18:31 Room Air 10/17/24 18:24 10/17/24 17:35 Room Air ECG Additional Comments: NSR, LBBB Code Status & VTE Plan Code Status full VTE Prophylaxis Plan VTE Prophylaxis will be ordered: Yes Supervising Physician Co-Signing Physician Notes Attending addendum: I have physically seen this patient, have supervised the [facility]'s activities, and agree with the H&P unless as otherwise noted. Assessment and Plan: The patient is a 74-year-old female with a past medical history including microscopic hematuria, hypothyroidism, irritable bowel disease, osteoporosis, GERD, and allergic symptoms. She presents to the emergency department with co mplaint of diarrhea that began earlier in the day, that she was attributing it to a possible reaction to doxycycline, but she was currently taking. #Gastric outlet obstruction/history of your bowel disease/GERD- Patient with CT scan abdomen pelvis showing distended stomach with focal thickening of the mid stomach, concerning for gastric outlet obstruction versus malignancy, mild layering hyperdense material in stomach but cannot exclude GI bleed. There is no suggestion of colon or small bowel obstruction. Patient with history of EGD 2021 which showed nonbleeding gastric ulcer with no masses seen Maternal grandfather with history of stomach cancer N.p.o. Pantoprazole 40 mg IV bolus/drip begun in the ED and will continue Zofran 4 mg IV every 6 hours as needed Acetaminophen 1 g IV every 8 hours as needed for mild pain or fever IV fluids as noted overnight No NG tube at this time Consult gastroenterology, who plans on EGD on 10/18 Diarrhea- Patient with multiple antibiotic sensitivities, presently on doxycycline, which we discontinued Stool PCR and C. difficile testing added and pending #Hematuria/right kidney hydronephrosis- Patient with history of microscopic hematuria for 30+ years, following with urology UA shows 2+ blood and greater than 20 RBCs IV fluids as noted Urology to assess patient Chronic medical issues: Hypothyroidism-temporarily hold levothyroxine Allergic symptoms-temporarily hold fexofenadine Insomnia-temporarily hold melatonin PG Care Time/CCT Total # of Minutes Spent Total Time Spent with Patient: Total time spent is greater than 50% in coordination of care (as documented) at patient's floor/unit and/or counseling patient: Coding Level of Care Code 03051 INT INP/OBS CARE 3/75MIN Diagnoses Gastric outlet obstruction K31.1 Diarrhea R19.7 Leukocytosis D72.829 Hyponatremia E87.1 Hematuria R31.9 Hydronephrosis of right kidney N13.30
[2024-10-17] MEDS: PANTOprazole 80 MG in DEXTROSE 5% 100 ML IV ONE (22:15)
[2024-10-17] MEDS: SODIUM CHLORIDE 0.9% 1,000 ML IV SCH (22:15)
[2024-10-17] MEDS: PANTOPRAZOLE BOLUS/DRIP IV STA (22:16)
--- NOTE | 2024-10-17 22:17 | Urology Consultation ---
<Statement entered by Chirsto Molina MD - 10/18/24 07:46> I agree with the above documentation. 74-year-old female with right hydronephrosis and microscopic hematuria. She should undergo hematuria workup, however this can be done as an outpatient. Currently, her creatinine looks within normal limits. Urinalysis is not overly concerning for infection. Would hold off acute urologic intervention at this time -Christo Molina MD. Date of Consultation October 17, 2024 Assessment & Plan (1) Hydronephrosis of right kidney: Patient is being admitted on the hospitalist service. Appears other pressing matters concern for gastric outlet obstruction we will defer management of this to the primary service From a urologic perspective we recommend the following: The patient is noted to have microscopic hematuria and this can be evaluated further as an outpatient potentially with a repeat cystoscopy Patient is noted to have right-sided hydronephrosis of moderate nature which was not present on CT scan from 2021. At the present time the patient is without back or flank pain and has a not elevated creatinine. Would recommend following serial labs to ensure she does not have deterioration of her renal function If her renal function remains stable and she remains relatively asymptomatic this can be pursued with further evaluation as an outpatient Concerning the patient's urinary urgency/incontinence would recommend monitoring the patient for high postvoid residuals. Patient does report that as an outpatient she tends to do double voiding which she should continue for the present time. If this condition continues to be problematic this can be further evaluated as an outpatient. Additional recommendations are forthcoming based on her clinical course as it unfolds (2) Hematuria: History of Present Illness Reason for Consultation: Hydronephrosis History of Present Illness This is a 74-year-old female who presented to the emergency department secondary to upper abdominal pain and diarrhea. Patient symptoms began the morning of 10/17/2024. She reports that she was recently placed on doxycycline which she is taking for approximately 6 days for an upper respiratory symptom that has improved. She is uncertain if her presenting symptomatology was related to this medication. She is being admitted on the hospitalist service for concern for gastric outlet obstruction was identified on CT scan delineated below. Urology was asked to see the patient as she was noted to have hydronephrosis on her CT scan along with hematuria. I visited with the patient at bedside she denies any fevers, shakes, or chills. She denies any back or flank pain. She denies any known history of kidney stones and to the best of her knowledge has not passed any kidney stones recently. She says that she does have a history of microscopic hematuria and many years ago she has had a cystoscopy that did not have any concerning findings. She denies any dysuria. She denies any gross hematuria. The patient notes that she does have urinary urgency which sometimes leads to some incontinence. She does feel as though her urine stream is not weak. She does admit that sometimes when she urinates she does not empty her bladder completely but that is able to empty her bladder upon a second voiding attempt. Since arrival to the hospital patient has had labs and imaging which independent reviewed. CT scan of the abdomen pelvis showed concern for a distended stomach with focal thickening of the mid stomach possibly representing gastric outlet obstruction. Underlying malignancy could not be excluded. There is also some hyperdense material in the stomach with the inability to exclude a GI bleed. There is no evidence of bowel obstruction. There was some mild right hydronephrosis with no visualized kidney stones. Labs included CBC where white blood cell count was elevated 16.3. Hemoglobin, macro count and platelet count were normal. Chemistry profile showed sodium is 132 with normal potassium. BUN and creatinine were not elevated. Urinalysis was not indicative of infection but did have 2+ blood. Patient's chart was reviewed and she did have a CT scan of the abdomen pelvis which was performed in June 2022. This study did not demonstrate any evidence of hydronephrosis. At the time of my interview the patient was resting comfortably in bed and she was no distress. Allergies Allergy/AdvReac Type Severity Reaction Status Date / Time Penicillins Allergy Mild RASH Verified 10/11/24 10:32 pneumococcal vaccine Allergy Mild sore Verified 10/11/24 10:32 [From Prevnar 13 (PF)] swollen arm at injection site Cephalosporins Allergy Unknown Unknown Verified 10/11/24 10:32 nitrofurantoin Allergy Unknown Unknown Verified 10/11/24 10:32 metronidazole AdvReac Mild Nausea Verified 10/11/24 10:32 Sulfa (Sulfonamide AdvReac Mild VOMITING Verified 10/11/24 10:32 Antibiotics) Home Medications Medication Instructions Recorded Confirmed Type calcium 250 mg-D3 500 unit-vit K 1 tab PO BID 03/19/19 10/17/24 History 25 day-jhcrlltwd-uwuyba-borate tablet fexofenadine 180 mg tablet 180 mg PO DAILY 03/19/19 10/17/24 History multivitamin 1 tab PO DAILY 03/19/19 10/17/24 History polyethylene glycol 3350 17 See Rx Instructions PO DAILY PRN 03/19/19 10/17/24 History gram/dose oral powder (Miralax) Constipation diclofenac sodium 1 % topical gel 2 g topical .COMPLEX PRN Pain #100 11/13/21 10/17/24 Rx grams acetaminophen 500 mg tablet 500 mg PO Q6H PRN Pain 11/14/21 10/17/24 History bacitracin zinc 500 unit-polymyxin 1 applic topical Q12H PRN 11/14/21 10/17/24 History B 10,000 unit/gram topical ointment Prophylaxis echinacea 380 mg capsule 760 mg PO DAILY 10/16/22 10/17/24 History mv-min-vit C-ascorb 4 tab PO UNKNOWN PRN PRN 06/04/23 10/17/24 History Jd-Vyf-Axw-herb #124 334 mg-1.7 mg chewable tablet (Airborne (ascorbate sodium)) levothyroxine 50 mcg tablet 50 mcg PO DAILY #90 tabs 11/21/23 10/17/24 Rx omeprazole 20 mg capsule,delayed 20 mg PO BID Acid Reflux 11/21/23 10/17/24 History release clobetasol 0.05 % topical cream See Rx Instructions .Route 06/24/24 10/17/24 Rx .COMPLEX PRN rash #15 grams melatonin 3 mg capsule 3 mg PO HS PRN Sleep 07/09/24 10/17/24 History zoledronic acid 5 mg/100 mL in 1 ea IV YEARLY 07/09/24 10/17/24 History mannitol 5 %-water intravenous piggybck (Reclast) docusate sodium 100 mg capsule 100 mg PO BID 09/03/24 10/17/24 History (Colace) doxycycline hyclate 100 mg tablet 100 mg PO BID 7 days #14 tabs 10/11/24 Rx Patient History Medical History Vulvar irritation Atrophic vulvovaginitis Gastric ulcer Vertigo Allergic rhinitis History of hematuria Microscopic hematuria Seborrheic keratosis Surgical History History of tubal ligation History of laparoscopy tubal ligation History of dilation and curettage History of cryosurgery of cervix - for incompetent cervix for , not abnormal pap per pt Family History Grandmother (Paternal) Breast cancer Brother Prostate cancer Heart disease Myocardial infarction Denies family history of Ovarian cancer Colorectal cancer Uterine cancer Social History Smoking Status: Never smoker Second Hand Exposure: No; Do You Dip or Chew Tobacco: No; Hx Alcohol Use: No Hx Substance Use: No Preferred Language: Citizen Of [place] Communication Ability: Effective Visual Impairment: Limited Hearing Ability: Use of Hearing Aid Flight Engineer Manager Required: No Beliefs That Will Affect Care: None marital status: Current Living Situation: Spouse current occupational status: employed, retired and 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 How many Children do You have: 2 Feels Safe at Home: Yes Childhood Exposure to Second-Hand Smoke: No Diet: regular caffeine: Yes (Hot Chocolate and tea.) during the past year weight has: remained stable Dental Care, Regularly: Yes Physical Activity Frequency: 5-6 Times per Week Seatbelt Use: always Sunscreen Use: Yes Do you think of yourself as: straight/heterosexual Sexual Activity: has been sexually active, but not for at least 12 months Gender Identity: Female Assistive Devices: Glasses and Hearing Aid - Bilateral Review of Systems Review of Systems: All systems reviewed & are unremarkable except as noted in HPI & below Physical Exam Constitutional: WD/WN, vitals as above Eyes: Wears glasses ENMT: Ears: no hearing impairment and no external ear abnormality Mouth: no oropharynx abnormality Neck: trachea midline Respiratory: normal respiratory effort; no respiratory distress and no labored breathing Cardiovascular: Rate/Rhythm: regular rate and regular rhythm Gastrointestinal (Abdomen): Soft and nontender to palpation Musculoskeletal: No calf tenderness Skin: no rashes Neurologic: moves all extremities Psychiatric: A+Ox3, euthymic affect Genitourinary: No CVA tenderness percussion bilaterally Results & Data Vital Signs (Past 12 Hours) Vital Signs Temp Pulse Pulse Resp BP BP Pulse Ox 10/17/24 19:14 76 18 139/60 97 10/17/24 18:31 96 10/17/24 18:24 77 10/17/24 17:35 37.2 C 88 18 138/84 97 O2 Del Method 10/17/24 19:14 Room Air 10/17/24 18:31 Room Air 10/17/24 18:24 10/17/24 17:35 Room Air PG Care Time/CCT Total # of Minutes Spent Total Time Spent with Patient: Total time spent is greater than 50% in coordination of care (as documented) at patient's floor/unit and/or counseling patient: Coding Level of Care Code 56254 INT INP/OBS CARE 3/75MIN Diagnoses Hydronephrosis of right kidney N13.30 Hematuria R31.9
[2024-10-17] MEDS: PANTOprazole 40 MG in DEXTROSE 5% MINI-B 100 ML IV SCH (22:33)
[2024-10-17] MEDS ORDERED: ACETAMINOPHEN 1,000 MG/100 ML VIAL IV PRN (22:56)
[2024-10-17] MEDS ORDERED: ONDANSETRON INJ 2 MG/ML 2 ML VIAL IV PRN (22:56)
[2024-10-18 07:06] VITALS: RESP 16
[2024-10-18 07:48] LABS: Basophils # (auto) 0.02 K/uL (0.00-0.20); Basophils % (auto) 0.3 %; Eosinophils # (auto) 0.14 K/uL (0.00-0.50); Hematocrit (blood only) 39.3 % (37.0-47.0); Hemoglobin 13.2 g/dl (12.0-16.0); Immature Granulocytes # (auto) 0.01 K/uL (0.01-0.20); Immature Granulocytes % (auto) 0.1 %; Lymphocytes # (auto) 2.01 K/uL (1.20-3.40); Lymphocytes % (auto) 28.8 %; Mean Corpuscular Hemoglobin 30.6 pg (25.0-34.0); Mean Corpuscular Hgb Conc 33.6 g/dL (32.0-36.0); Mean Corpuscular Volume 91.2 fL (80.0-100.0); Mean Platelet Volume 9.3 fL (9.4-12.4); Monocytes # (auto) 0.59 K/uL (0.11-0.59); Monocytes % (auto) 8.4 %; Neutrophils # (auto) 4.22 K/uL (1.40-6.50); Neutrophils % (auto) 60.4 %; Platelet Count 276 K/uL (130-400); RDW Coefficient of Variation 11.6 % (11.5-14.5); RDW Standard Deviation 39.4 fL (36.4-46.3); Red Blood Count 4.31 M/uL (4.20-5.40); White Blood Count 6.99 K/ul (4.8-10.8)
[2024-10-18 08:03] LABS: BUN Creatinine Ratio 13.5 (10-20); Calcium 8.5 mg/dl (8.6-10.3); Creatinine Clr Calc Pharmacy 81.6 ml/min
--- NOTE | 2024-10-18 11:25 | Gastrointestinal Consultation ---
Date of Consultation October 18, 2024 Assessment & Plan (1) Abdominal pain: 74 year old female with history of microscopic hematuria, hypothyroidism, IBS, PUD in 2021, osteoporosis, GERD admitted through the ED w/ abdominal pain, nausea/vomiting, diarrhea, CT w/ distended stomach with focal thickening of the mid stomach - Will review CT w/ attending and radiology - Maintain NPO status - EGD timing to be determined - Agree w/ IV PPI therapy - No NSAIDs We appreciate assistance in the management of any serological abnormality and corrections to include: hemoglobin >7, INR <2, platelets >50,000, potassium levels >3.5 but <5.3, and sodium levels within 5 points of the reference range prior to endoscopic evaluation. Thank you for allowing us to participate in the care of this patient. Please call with any acute changes, questions or concerns. Please see addendum below with additional recommendation from my supervising physician. I spent a total of 60 minutes on the date of service in review of patient's record, and previously obtained information in person and appropriate medical visit, discussion and education of plan, with patient and/or caregiver, placing orders for tests/referral/procedures as medically necessary and documentation of pertinent clinical information in patient's medical records for their visit today. Supervising Physician Co-Signing Physician Notes Patient was on prednisone and doxycycline for upper respiratory symptoms. Few days in the doxycycline she began to have epigastric pain that persisted stop the doxycycline but the send pain was still there 12 hours later so comes to the ER. CT was concerning for gastric outlet obstruction or colonic gastric wall thickening patient felt well prior to institution of these medications however she does have a history of peptic ulcer disease in the past also has a history irritable bowel. She is currently feeling well Recommend EGD to evaluate for potential gastric L obstruction neoplasia per CT findings. Potentially this is just related to chemical gastritis from prednisone and doxycycline Abdomen entirely benign History of Present Illness Reason for Consultation: possible stomach malignancy on CT Requesting Physician: Jai Herrera MD Attending Physician: Jai Herrera MD History of Present Illness 74 year old female with history of microscopic hematuria, hypothyroidism, IBS, PUD in 2021, osteoporosis, GERD admitted through the ED w/ abdominal pain, nausea/vomiting, diarrhea. GI was asked to evaluate for abnormal imaging. She notes that her current symptoms started during course of ABX that was started on for respiratory symptoms. Note that a few days into her Doxy course she developed GI upset, abd pain, nausea and diarrhea. Prior to this she denies any new or worsening GI symptoms. Denies weight loss. No black or bloody stools. [facility] and last evaluated in July by PAULINA Rich w/ plans for an OP EGD for evaluation of worsening reflux. CTAP 2024: Distended stomach with focal thickening of the mid stomach. This is concerning for gastric outlet obstruction. The thickening could relate to malignancy. There is mild layering hyperdense material in the stomach. Cannot exclude GI bleed. Recommend further evaluation with EGD.. The small bowel and colon are fluid-filled without obstruction. This likely represent enterocolitis. Mild right hydronephrosis. No visualized nephrolithiasis. EGD 2021: Normal esophagus. - Z-line regular, 37 cm from the incisors. - Multiple gastric polyps. - Normal examined duodenum. - No specimens collected. EUS 2021: There was no sign of significant pathology in the ampulla. - There was no sign of significant pathology in the common bile duct. - Several 2 mm gallbladder polyps (noted on prior RUQ US in 2010) - There was no evidence of significant pathology in the visualized portion of the liver. - There was no sign of significant pathology in the entire pancreas. - Endosonographic images of the left adrenal gland were unremarkable. - No specimens collected. EGD 2021: Normal esophagus. - Non-bleeding gastric ulcer with no stigmata of bleeding. Biopsied. - Normal examined duodenum. Colonoscopy 2020: The examined portion of the ileum was normal. - One 5 mm polyp in the ascending colon, removed with a cold snare. Resected and retrieved. - Diverticulosis in the sigmoid colon. - Internal hemorrhoids. - Biopsies were taken with a cold forceps from the entire colon for evaluation of microscopic colitis. Allergies Allergy/AdvReac Type Severity Reaction Status Date / Time Penicillins Allergy Mild RASH Verified 10/11/24 10:32 pneumococcal vaccine Allergy Mild sore Verified 10/11/24 10:32 [From Prevnar 13 (PF)] swollen arm at injection site Cephalosporins Allergy Unknown Unknown Verified 10/11/24 10:32 nitrofurantoin Allergy Unknown Unknown Verified 10/11/24 10:32 metronidazole AdvReac Mild Nausea Verified 10/11/24 10:32 Sulfa (Sulfonamide AdvReac Mild VOMITING Verified 10/11/24 10:32 Antibiotics) Home Medications Medication Instructions Recorded Confirmed Type calcium 250 mg-D3 500 unit-vit K 1 tab PO BID 03/19/19 10/17/24 History 25 rma-ksmbxtfmv-zteydf-borate tablet fexofenadine 180 mg tablet 180 mg PO DAILY 03/19/19 10/17/24 History multivitamin 1 tab PO DAILY 03/19/19 10/17/24 History polyethylene glycol 3350 17 See Rx Instructions PO DAILY PRN 03/19/19 10/17/24 History gram/dose oral powder (Miralax) Constipation diclofenac sodium 1 % topical gel 2 g topical .COMPLEX PRN Pain #100 11/13/21 10/17/24 Rx grams acetaminophen 500 mg tablet 500 mg PO Q6H PRN Pain 11/14/21 10/17/24 History bacitracin zinc 500 unit-polymyxin 1 applic topical Q12H PRN 11/14/21 10/17/24 History B 10,000 unit/gram topical ointment Prophylaxis echinacea 380 mg capsule 760 mg PO DAILY 10/16/22 10/17/24 History mv-min-vit C-ascorb 4 tab PO UNKNOWN PRN PRN 06/04/23 10/17/24 History Ib-Njj-Mnh-herb #124 334 mg-1.7 mg chewable tablet (Airborne (ascorbate sodium)) levothyroxine 50 mcg tablet 50 mcg PO DAILY #90 tabs 11/21/23 10/17/24 Rx omeprazole 20 mg capsule,delayed 20 mg PO BID Acid Reflux 11/21/23 10/17/24 History release clobetasol 0.05 % topical cream See Rx Instructions .Route 06/24/24 10/17/24 Rx .COMPLEX PRN rash #15 grams melatonin 3 mg capsule 3 mg PO HS PRN Sleep 07/09/24 10/17/24 History zoledronic acid 5 mg/100 mL in 1 ea IV YEARLY 07/09/24 10/17/24 History mannitol 5 %-water intravenous piggybck (Reclast) docusate sodium 100 mg capsule 100 mg PO BID 09/03/24 10/17/24 History (Colace) doxycycline hyclate 100 mg tablet 100 mg PO BID 7 days #14 tabs 10/11/24 10/17/24 Rx Patient History Medical History Vulvar irritation Atrophic vulvovaginitis Gastric ulcer Vertigo Allergic rhinitis History of hematuria Microscopic hematuria Seborrheic keratosis Surgical History History of tubal ligation History of laparoscopy tubal ligation History of dilation and curettage History of cryosurgery of cervix - for incompetent cervix for , not abnormal pap per pt Family History Grandmother (Paternal) Breast cancer Brother Prostate cancer Heart disease Myocardial infarction Denies family history of Ovarian cancer Colorectal cancer Uterine cancer Social History Smoking Status: Never smoker Second Hand Exposure: No; Do You Dip or Chew Tobacco: No; Hx Alcohol Use: Yes Alcohol type: wine Hx Substance Use: No Preferred Language: German Communication Ability: Effective Visual Impairment: Limited Hearing Ability: Use of Hearing Aid Shipping Specialist Required: No Beliefs That Will Affect Care: None marital status: Current Living Situation: Spouse current occupational status: employed, retired and 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 How many Children do You have: 2 Feels Safe at Home: Yes Safety Concerns: Feels Safe At This Time Childhood Exposure to Second-Hand Smoke: No Diet: regular caffeine: Yes (Hot Chocolate and tea.) during the past year weight has: remained stable Dental Care, Regularly: Yes Physical Activity Frequency: 5-6 Times per Week Seatbelt Use: always Sunscreen Use: Yes Do you think of yourself as: straight/heterosexual Sexual Activity: has been sexually active, but not for at least 12 months Gender Identity: Female Assistive Devices: None Review of Systems Review of Systems: All other findings negative except as noted in HPI. Physical Exam Constitutional: WD/WN, vitals as above Respiratory: normal respiratory effort, lungs clear to auscultation Cardiovascular: Rate/Rhythm: regular rate and regular rhythm Gastrointestinal (Abdomen): Inspection/Auscultation: normal bowel sounds Percussion/Palpation: abdomen soft; abdomen nontender Skin: no rashes, warm and dry Results & Data Vital Signs (Past 12 Hours) Vital Signs Temp Pulse Resp BP Pulse Ox O2 Del Method 10/18/24 07:05 97.9 F 74 16 122/55 L 94 Room Air 10/17/24 23:24 Room Air Laboratory Results 10/18/24 10/17/24 10/17/24 Range/Units 07:22 19:19 18:30 WBC 6.99 16.31 H (4.8-10.8) K/ul RBC 4.31 4.71 (4.20-5.40) M/uL Hgb 13.2 14.1 (12.0-16.0) g/dl Hct 39.3 42.5 (37.0-47.0) % MCV 91.2 90.2 (80.0-100.0) fL MCH 30.6 29.9 (25.0-34.0) pg MCHC 33.6 33.2 (32.0-36.0) g/dL RDW Std Deviation 39.4 37.9 (36.4-46.3) fL RDW Coeff of Lance 11.6 11.5 (11.5-14.5) % Plt Count 276 300 (130-400) K/uL MPV 9.3 L 9.4 (9.4-12.4) fL Immature Gran % (Auto) 0.1 0.4 % Neut % (Auto) 60.4 90.7 % Lymph % (Auto) 28.8 4.9 % [place] % (Auto) 8.4 3.1 % Eos % (Auto) 2.0 0.7 % Baso % (Auto) 0.3 0.2 % Neut # (Auto) 4.22 14.80 H (1.40-6.50) K/uL Lymph # (Auto) 2.01 0.80 L (1.20-3.40) K/uL [place] # (Auto) 0.59 0.50 (0.11-0.59) K/uL Eos # (Auto) 0.14 0.12 (0.00-0.50) K/uL Baso # (Auto) 0.02 0.03 (0.00-0.20) K/uL Immature Gran # (Auto) 0.01 0.06 (0.01-0.20) K/uL Sodium 139 132 L (136-145) mmol/L Potassium 4.0 3.6 (3.5-5.1) mmol/L Chloride 108 H 99 (98-107) mmol/L Carbon Dioxide 27 28 (21-32) mmol/L Anion Gap 4 5 (3-11) BUN 7 13 (6-23) mg/dl Creatinine 0.52 L 0.56 L (0.6-1.2) mg/dl Est Cr Clr Drug Dosing 81.6 76.3 ml/min eGFR 97.43 95.71 BUN/Creatinine Ratio 13.5 23.2 H (10-20) Glucose 91 116 H (70-99(Fasting)) mg/dl Calcium 8.5 L 8.7 (8.6-10.3) mg/dl Magnesium 2.0 (1.7-2.4) mg/dl Total Bilirubin 0.4 (0.2-1.0) mg/dl AST 24 (13-39) U/L ALT 17 (7-52) U/L Alkaline Phosphatase 57 (34-104) U/L Troponin I High Sens 4.2 (0-14) pg/ml Total Protein 7.0 (6.0-8.3) gm/dl Albumin 4.0 (3.4-5.0) gm/dl Globulin 3.0 (2.5-4.0) gm/dl Albumin/Globulin Ratio 1.3 (0.9-2) Lipase 19 (11-82) U/L Urine Color Yellow Urine Appearance Clear (Clear) Urine pH 6.5 (4.5-7.5) Ur Specific [place] 1.005 (1.000-1.030) Urine Protein Negative (Negative) Urine Glucose (UA) Negative (Negative) Urine Ketones Negative (Negative) Urine Blood 2+ H (Negative) Urine Nitrite Negative (Negative) Urine Bilirubin Negative (Negative) Urine Urobilinogen Negative (Negative) Ur Leukocyte Esterase Negative (Negative) Urine WBC (Auto) 0-5 (0-5) /hpf Urine RBC (Auto) >20 H (0-2) /hpf U Hyaline Cast (Auto) 0-2 (0-2) /lpf U Epithel Cells (Auto) 0-2 (0-2) /hpf Urine Bacteria (Auto) None Seen (None Seen) PG Care Time/CCT Total # of Minutes Spent Total Time Spent with Patient: Total time spent is greater than 50% in coordination of care (as documented) at patient's floor/unit and/or counseling patient: Coding Level of Care Code 21518 INT INP/OBS CARE 2/55MIN Diagnoses Abdominal pain R10.9
--- NOTE | 2024-10-18 12:32 | Hospitalist Progress Note ---
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 She presents today due to diarrhea that began this morning that she felt was secondary to a doxycycline allergy. She is being admitted due to gastric outlet obstruction, n.p.o. status, GI consulted for possible EGD 10/18. #Gastric outlet obstruction hx of irritable bowel disease and GERD CTAP showing distended stomach with focal thickening of mid stomach, concerning for gastric outlet obstruction VS malignancy, mild layering hyperdense material in stomach but cannot exclude GI bleed - no obstruction of colon or small bowel Patient did have a EGD in 2021 that showed nonbleeding gastric ulcer, no masses seen Does have familial history of stomach cancer with maternal grandfather N.p.o. IV pantoprazole drip started in ED Zofran and Tylenol as needed Gentle hydration with IVF overnight GI consulted, would anticipate EGD 10/18 Defer NG tube at this time as patient nondistended, denies abdominal pain #diarrhea possibly 2/2 to doxycycline use discontinue doxycycline, only had 2 doses left Stool cultures ordered #leukocytosis WBC 16.3 on admission Suspect 2/2 colitis Defer ABX use at this time, Supportive care as above #Hyponatremia Sodium of 132 on admission Suspect 2/2 hypotonic hyponatremia with recent diarrhea 1L NSS bolus in ED, 1L gentle resuscitation overnight could consider urine osmole, serum osmole, urine sodium if hyponatremia does not resolve with IV fluids Trend BMP #hematuria/ hydronephrosis right kidney Patient with microscopic hematuria for 30+ years UA on admission showing >20 RBCs denies urinary symptoms or flank pain CTAP showing mild right hydronephrosis, no visualized nephrolithiasis consult urology Chronic stable diagnoses: hypothyroidism - hold levothyroxine with NPO osteoporosis - Reclast Q yearly - most recent in aug 2024 VTE ppx: SCDs; defer chemical ppx with possible surgical management above Diet: NPO Dispo: Med surg Admission and Anticipated Discharge Date Admission Date: October 17, 2024 Subjective Patient seen and evaluated at bedside. She reports that she is feeling better at this time, denies any further episodes of diarrhea, nausea, or vomiting. Reports her abdominal pain has improved as well. She is to get an EGD with GI today with further recommendations to come based on that. Physical Exam Physical Exam: The patient is awake, alert and oriented 3, well developed and well nourished, normocephalic and atraumatic, in no acute distress. Non-toxic appearing. HEENT- EOMI, mucous membranes moist. Hearing grossly intact. Heart-normal S1 and S2. No murmurs, rubs or gallops. Lungs-clear bilaterally, no respiratory distress, no accessory muscle use. Abdomen-normal bowel sounds and soft. No ascites noted. Non-tender. No distention. Extremities- no clubbing, cyanosis, or edema. Rheumatologic-normal range of motion. Psychiatric-normal affect. Results & Data Results & Data Vital Signs (Past 12 Hours) Vital Signs Temp Pulse Resp BP Pulse Ox O2 Del Method 10/18/24 07:05 97.9 F 74 16 122/55 L 94 Room Air PG Care Time/CCT Total # of Minutes Spent Total Time Spent with Patient: Total time spent is greater than 50% in coordination of care (as documented) at patient's floor/unit and/or counseling patient: Coding Diagnoses Gastric outlet obstruction K31.1 Diarrhea R19.7 Leukocytosis D72.829 Hyponatremia E87.1 Hematuria R31.9 Hydronephrosis of right kidney N13.30
--- NOTE | 2024-10-18 13:07 | Urology Progress Note ---
Date of Service October 18, 2024 Assessment & Plan (1) Hydronephrosis of right kidney: (2) Hematuria: Plan 74-year-old female admitted with gastric outlet obstruction. CT imaging on arrival demonstrated mild right hydronephrosis with no visualized stones. Patient also reported a history of microscopic hematuria and was found to have >20RBC on UA at admission. She is afebrile and hemodynamically stable Labs show no leukocytosis, hemoglobin 13.2, normal renal function Urinalysis with > 20 RBC otherwise unremarkable She is voiding spontaneously, reports baseline urgency and frequency No acute intervention warranted Continue to monitor ability to void, bladder scan as needed She should undergo further workup for hematuria, however this can be done as an outpatient In regards to the right-sided hydronephrosis, her renal function is normal and she is without back or flank pain. Continue to trend labs. If her renal function remains stable, can pursue further evaluation as an outpatient. Will arrange outpatient follow-up with our service for further evaluation - Pt agreeable. Urology will follow peripherally. Please call with any questions/concerns or changes in patient status. Admission and Anticipated Discharge Date Admission Date: October 17, 2024 Subjective Pt seen at bedside this AM Awake and resting in bed on arrival No acute distress She denies flank pain Denies f/c/n/v Voiding without issue Has been NPO for EGD today Review of Systems Constitutional: as per Subjective / HPI Genitourinary: as per Subjective / HPI Physical Exam Constitutional: no acute distress Respiratory: no respiratory distress and no labored breathing Neurologic: awake Psychiatric: A+Ox3, euthymic affect Results & Data Vital Signs (Past 12 Hours) Vital Signs Temp Pulse Resp BP Pulse Ox O2 Del Method 10/18/24 07:05 36.6 C 74 16 122/55 L 94 Room Air PG Care Time/CCT Total # of Minutes Spent Total Time Spent with Patient: Total time spent is greater than 50% in coordination of care (as documented) at patient's floor/unit and/or counseling patient: Coding Level of Care Code 39592 SUB INP/OBS CARE 2/35MIN Diagnoses Hydronephrosis of right kidney N13.30 Hematuria R31.9
--- NOTE | 2024-10-18 13:39 | Anesthesiology Consultation ---
Date of Service October 18, 2024 Assessment & Plan Chart Review Chart Review: Acceptable Risk for Surgery Consults Requested none History Surgery Operation Date: 10/18/24 17:40 Proposed Procedures p Esophagogastroduodenoscopy Dr. Aaron Walker MD Height/Weight Height: 5 ft 2 in Weight: 61 kg Allergies Allergy/AdvReac Type Severity Reaction Status Date / Time Penicillins Allergy Mild RASH Verified 10/11/24 10:32 pneumococcal vaccine Allergy Mild sore Verified 10/11/24 10:32 [From Prevnar 13 (PF)] swollen arm at injection site Cephalosporins Allergy Unknown Unknown Verified 10/11/24 10:32 nitrofurantoin Allergy Unknown Unknown Verified 10/11/24 10:32 metronidazole AdvReac Mild Nausea Verified 10/11/24 10:32 Sulfa (Sulfonamide AdvReac Mild VOMITING Verified 10/11/24 10:32 Antibiotics) Medications Home Medications Medication Instructions Recorded Confirmed Last Taken calcium 250 mg-D3 500 unit-vit K 1 tab PO BID 03/19/19 10/17/24 Unknown 25 con-gayyeewtk-mbbkqy-borate tablet fexofenadine 180 mg tablet 180 mg PO DAILY 03/19/19 10/17/24 Unknown multivitamin 1 tab PO DAILY 03/19/19 10/17/24 Unknown polyethylene glycol 3350 17 See Rx Instructions PO DAILY PRN 03/19/19 10/17/24 Unknown gram/dose oral powder (Miralax) Constipation diclofenac sodium 1 % topical gel 2 g topical .COMPLEX PRN Pain #100 11/13/21 10/17/24 Unknown grams acetaminophen 500 mg tablet 500 mg PO Q6H PRN Pain 11/14/21 10/17/24 Unknown bacitracin zinc 500 unit-polymyxin 1 applic topical Q12H PRN 11/14/21 10/17/24 Unknown B 10,000 unit/gram topical ointment Prophylaxis echinacea 380 mg capsule 760 mg PO DAILY 10/16/22 10/17/24 Unknown mv-min-vit C-ascorb 4 tab PO UNKNOWN PRN PRN 06/04/23 10/17/24 Unknown Ls-Cjd-Vny-herb #124 334 mg-1.7 mg chewable tablet (Airborne (ascorbate sodium)) levothyroxine 50 mcg tablet 50 mcg PO DAILY #90 tabs 11/21/23 10/17/24 Unknown omeprazole 20 mg capsule,delayed 20 mg PO BID Acid Reflux 11/21/23 10/17/24 Unknown release clobetasol 0.05 % topical cream See Rx Instructions .Route 06/24/24 10/17/24 Unknown .COMPLEX PRN rash #15 grams melatonin 3 mg capsule 3 mg PO HS PRN Sleep 07/09/24 10/17/24 Unknown zoledronic acid 5 mg/100 mL in 1 ea IV YEARLY 07/09/24 10/17/24 Unknown mannitol 5 %-water intravenous piggybck (Reclast) docusate sodium 100 mg capsule 100 mg PO BID 09/03/24 10/17/24 Unknown (Colace) doxycycline hyclate 100 mg tablet 100 mg PO BID 7 days #14 tabs 10/11/24 10/17/24 Unknown Active Medications Generic Name Dose Route Start Last Admin Trade Name Freq PRN Reason Stop Dose Admin Pantoprazole Sodium 40 mg/ 100 mls @ 20 mls/hr 10/17/24 21:15 10/18/24 12:59 Dextrose IV 11/16/24 21:14 0 mg/hr Q5H ANI 0 mls/hr Infusion 8 MG/HR NPO Date Last Intake of Fluids: 10/17/24 Time Last Intake of Fluids: 17:00 Date Last Intake of Solids: 10/17/24 Time Last Intake of Solids: 16:30 Past Medical History Medical History Vulvar irritation Atrophic vulvovaginitis Gastric ulcer Vertigo Allergic rhinitis History of hematuria Microscopic hematuria Seborrheic keratosis Past Family History Family History Grandmother (Paternal) Breast cancer Brother Prostate cancer Heart disease Myocardial infarction Denies family history of Ovarian cancer Colorectal cancer Uterine cancer Past Surgical History Surgical History History of tubal ligation History of laparoscopy tubal ligation History of dilation and curettage History of cryosurgery of cervix - for incompetent cervix for , not abnormal pap per pt Social History Smoking Status: Never smoker Do You Dip or Chew Tobacco: No Hx Alcohol Use: Yes Alcohol type: wine alcohol intake frequency: holidays/special occasions only Hx Substance Use: No substance use type: does not use Physical Exam Vital Signs Last Vital Signs Temp 37.1 C 10/18/24 13:22 Pulse 75 10/18/24 13:22 Resp 16 10/18/24 13:22 BP 154/81 H 10/18/24 13:22 Pulse Ox 98 10/18/24 13:22 O2 Del Method Room Air 10/18/24 13:22 Testing Laboratory Results 10/18/24 07:22 10/18/24 07:22 Urine Color Yellow 10/17/24 19:19 Urine Appearance Clear (Clear) 10/17/24 19:19 Urine pH 6.5 (4.5-7.5) 10/17/24 19:19 Ur Specific [place] 1.005 (1.000-1.030) 10/17/24 19:19 Urine Protein Negative (Negative) 10/17/24 19:19 Urine Glucose (UA) Negative (Negative) 10/17/24 19:19 Urine Ketones Negative (Negative) 10/17/24 19:19 Urine Nitrite Negative (Negative) 10/17/24 19:19 Ur Leukocyte Esterase Negative (Negative) 10/17/24 19:19 Urine WBC (Auto) 0-5 /hpf (0-5) 10/17/24 19:19 Urine RBC (Auto) >20 /hpf (0-2) H 10/17/24 19:19 U Hyaline Cast (Auto) 0-2 /lpf (0-2) 10/17/24 19:19 U Epithel Cells (Auto) 0-2 /hpf (0-2) 10/17/24 19:19 Urine Bacteria (Auto) None Seen (None Seen) 10/17/24 19:19
--- NOTE | 2024-10-18 14:19 | GI REPORT ---
[facility] Patient: BRIELLE JC : 1950 Sex at : Female Age: 74 Years Procedure: Upper GI endoscopy Date: 10/18/2024 Attending Physician: Jalen Walker MD Referring MD: Nallely Lan Indications: - Epigastric abdominal pain - Abnormal CT scan suggesting possible gastric outlet obstruction thickening of the body of the stomach. For EGD evaluation direct visualization Medications: - Monitored Anesthesia Care Complications: - No immediate complications. Estimated Blood Loss: - Estimated blood loss was minimal. Procedure: - The EGD Scope was introduced through the mouth and advanced to the second part of the duodenum. - The upper GI endoscopy was accomplished without difficulty. - The patient tolerated the procedure well. Findings: - A small hiatal hernia was present. - Patchy moderate inflammation characterized by erosions, erythema and friability was found in the entire examined stomach. Biopsies were taken with a cold forceps for histology. - Multiple medium sessile polyps were found in the gastric body. Biopsies were taken with a cold forceps for histology. - A medium-sized frond-like/villous and polypoid mass with no bleeding was found in the first portion of the duodenum. Biopsies were taken with a cold forceps for histology. Impression: - Small hiatal hernia. - Gastritis, characterized by erosions, erythema and friability. Biopsied. - Multiple gastric polyps. Biopsied. - Likely benign duodenal mass. Biopsied. - Patient is at gastritis or stomach. However body and antrum most pronounced. With some edematous inflamed folds. This could be a chemical gastritis from her doxycycline. H. pylori is on the differential. Neoplasia less probable. There is no evidence for gastric outlet obstruction there is no retained food or secretions in the stomach. The large channel was patent. The duodenum first second parts were normal. However on the floor of the duodenum just distal to the pyloric channel itself was from the edematous mucosa this measured about 2 cm. Does appear benign and may just represent very prominent Camille's gland hypertrophy. We did biopsy this. I do not believe this plays a role in the patient's symptoms. - At this point I think she can be discharged. Continue PPI therapy. If the doxycycline can be stopped recommend. Continue her PPI. Avoid NSAIDs. Return if problems contacted with biopsies when available Recommendation: Procedure Code(s): - 37915, Esophagogastroduodenoscopy, flexible, transoral; with biopsy, single or multiple Diagnosis Code(s): - R10.13, Epigastric pain - K44.9, Diaphragmatic hernia without obstruction or gangrene - K29.70, Gastritis, unspecified, without bleeding - K31.7, Polyp of stomach and duodenum - K31.89, Other diseases of stomach and duodenum CPT(R) - 2023 copyright [employer]. All Rights Reserved. The CPT codes, CCI edits and ICD codes generated are intended as suggestions and were generated based on input data. These codes are preliminary and upon wood stainer review may be revised to meet current compliance and payer requirements. The provider is responsible for the final determination of appropriate codes, and modifiers. Jalen Walker MD This document has been electronically signed. Note Initiated:10/18/2024 Note Completed:10/18/2024 2:17 PM [email or web address]\Provation\Results\[email or web address]\[id number].pdf
--- NOTE | 2024-10-18 14:30 | Anesthesiology Progress Note ---
Date of Service October 18, 2024 Anesthesia Post Procedure Vital Signs Vital Signs: Temp Pulse Pulse Pulse Resp BP BP 10/18/24 14:17 79 16 114/68 10/18/24 13:22 37.1 C 75 16 154/81 H 10/18/24 07:05 36.6 C 74 16 122/55 L 10/17/24 23:24 10/17/24 22:59 37.0 C 75 18 147/69 H 10/17/24 22:35 83 18 125/93 10/17/24 21:00 79 18 129/68 10/17/24 19:14 76 18 139/60 10/17/24 18:31 10/17/24 18:24 77 10/17/24 17:35 37.2 C 88 18 138/84 Pulse Ox O2 Del Method 10/18/24 14:17 96 Room Air 10/18/24 13:22 98 Room Air 10/18/24 07:05 94 Room Air 10/17/24 23:24 Room Air 10/17/24 22:59 98 Room Air 10/17/24 22:35 97 Room Air 10/17/24 21:00 97 Room Air 10/17/24 19:14 97 Room Air 10/17/24 18:31 96 Room Air 10/17/24 18:24 10/17/24 17:35 97 Room Air Pain Intensity Abdomen: Pain Intensity: 4 Transfer of Care Handoff Completed per policy Notes Mental Status: alert / awake / arousable and participated in evaluation Patient Amnestic to Procedure: Yes Nausea / Vomiting: adequately controlled Pain: adequately controlled Airway Patency, RR, SpO2: stable & adequate BP & HR: stable & adequate Hydration State: stable & adequate Anesthetic Complications: no major complications apparent
[2024-10-18 15:00] VITALS: BP 139/80; TEMP 98.2; O2SAT 100
--- NOTE | 2024-10-18 15:13 | Electrocardiogram Report ---
Test Reason : Blood Pressure : */* mmHG Vent. Rate : 82 BPM Atrial Rate : 82 BPM P-R Int : 152 ms QRS Dur : 146 ms QT Int : 396 ms P-R-T Axes : 53 -6 87 degrees QTcB Int : 462 ms Normal sinus rhythm Left bundle branch block Abnormal ECG When compared with ECG of 23-Jun-2024 10:29, No significant change was found Confirmed by Pankaj Darling ([id number]) on 10/18/2024 3:12:39 PM Referred By: REFERRED SELF Confirmed By: Pankaj Darling
[2024-10-18] MEDS: LIDOCAINE 2% 2 ML VIAL/AMP(20MG/ML) INFIL ONE (15:26)
[2024-10-18] MEDS: PROPOFOL IV EMULSION 10 MG/ML 20 ML VIAL IV ONE (15:26)
[2024-10-18 16:07] VITALS: PULSE 74
[2024-10-18 17:48] LABS: Adenovirus F 40/41 PCR Not Detected (NotDetected); Astrovirus PCR Not Detected (NotDetected); Campylobacter PCR Not Detected (NotDetected); Cryptosporidium PCR Not Detected (NotDetected); Cyclospora cayetanensis PCR Not Detected (NotDetected); Entamoeba histolytica PCR Not Detected (NotDetected); Enteroaggregative E.coli(EAEC) Not Detected (NotDetected); Enteropathogenic E.coli (EPEC) Not Detected (NotDetected); Enterotoxigenic E.coli (ETEC) Not Detected (NotDetected); Giardia lamblia PCR Not Detected (NotDetected); Plesiomonas shigelloides PCR Not Detected (NotDetected); Rotavirus A PCR Not Detected (NotDetected); Salmonella PCR Not Detected (NotDetected); Shiga-like Toxin E.coli (STEC) Not Detected (NotDetected); Shigella/Enteroinvasive E.coli Not Detected (NotDetected); Vibrio cholerae PCR Not Detected (NotDetected); Vibrio species PCR Not Detected (NotDetected); Yersinia enterocolitica PCR Not Detected (NotDetected)
[2024-10-18 17:54] LABS: Norovirus GI/GII PCR DETECTED (NotDetected); Sapovirus PCR DETECTED (NotDetected)
--- NOTE | 2024-10-19 09:42 | Discharge Summary ---
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 She presented due to diarrhea x 1 day that she felt was secondary to a doxycycline allergy. She was admitted due to CT A/P with concerns for gastric outlet obstruction, n.p.o. status, GI consulted for possib le EGD. #Gastric outlet obstruction -CTAP showing distended stomach with focal thickening of mid stomach, concerning for gastric outlet obstruction VS malignancy, mild layering hyperdense material in stomach but cannot exclude GI bleed - no obstruction of colon or small bowel -GI consulted, EGD performed which showed gastritis, but no mass or anatomical abnormality or gastric outlet obstruction -Stool studies resulted in Norovirus and Sapovirus -Diarrhea resolved, patient tolerated regular diet -Continue PPI BID, Zofran PRN nausea, avoid NSAIDs #Diarrhea -Possibly 2/2 to doxycycline use, discontinued doxy only had 2 doses left -Stool studies resulted in Norovirus and Sapovirus -Supportive measures #Hematuria/ Hydronephrosis right kidney -Patient with microscopic hematuria for 30+ years -UA on admission showing >20 RBCs -Denies urinary symptoms or flank pain -CTAP showing mild right hydronephrosis, no visualized nephrolithiasis -Urology consulted, follow-up outpatient for further workup #Hyponatremia Sodium of 132 on admission, Suspect 2/2 hypotonic hyponatremia with recent diarrhea Given IV fluid and hyponatremia resolved #Leukocytosis -WBC 16.3 on admission, Suspect 2/2 colitis -Resolved Chronic stable diagnoses: hypothyroidism - hold levothyroxine with NPO osteoporosis - Reclast Q yearly - most recent in aug 2024 Dispo: Discharged home 10/18/24 Admission HPI Per Admitting Provider 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 She presents today due to diarrhea that began this morning that she felt was secondary to a doxycycline allergy. She was recently seen by her PCP for a URI and was treated with prednisone and doxycycline; she was on day 6/7 of doxycycline, to finish course 10/18. She stated that this morning when she woke up she began with some abdominal pain and diarrhea, last episode at 1620 today. She also has had some belching, nausea, however denies vomiting. She stated her upper respiratory symptoms have been improving. She does have a past history of irritable bowel disease, had a EGD in 2021 which showed a nonbleeding gastric ulcer, no masses seen. She does have a familial history of stomach cancer with her maternal grandfather. Patient denies fever, dysuria, gross hematuria, melena, blood in stool, abd distention. She does endorse chronic chills, has hypothyroidism. She also endorses chronic urinary urgency and increasing frequency, no acute changes. 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 She does not use nicotine products or drink alcohol. She denies past history of CVA or DM. She did take her a.m. medications today but not her evening doses; will hold on admission due to n.p.o. status. She wishes to be full code at this time. Discharge Exam General: No acute distress, nondiaphoretic, well-developed, well-nourished. Skin: The skin was without rashes, erythema, edema, or bruising. Cardiac: Regular rate and rhythm without murmurs gallops or rubs. Pulm: Clear to auscultation bilaterally without wheezes, rales or rhonchi. No retractions or accessory muscle use. Abdominal: Positive bowel sounds x 4. Soft, nontender, without masses or organomegaly. No guarding or rebound tenderness. Neuro: A&O x3. No focal neurological deficits. Discharge Plan Discharge Items Patient Disposition: Home - Self-Care Reason For Visit: GASTRIC OUTLET OBSTRUCTION Discharge Diagnosis: Gastritis Activity: Resume your previous activity Non-emergency contact: Primary Care Provider Call non-emergency contact if: you have any medication questions and your symptoms worsen Follow-up/Referrals: Nallely Lan CRNP [Primary Care Provider] - 10/25/24 8:30 am (Follow-up 1- 2 weeks) Diet: Regular Addtl Attending Provider Instructions: Mrs. Lindo, Kevin were admitted to the hospital due to concern for gastric outlet obstruction noted on CT scan of your abdomen/pelvis. You were evaluated by the GI team, who performed an EGD on 10/18/2024. The EGD showed gastritis (inflammation of your stomach lining), but luckily no mass or anatomical abnormality or gastric outlet obstruction. Biopsies were taken and can be followed up on with your PCP. This gastritis and your symptoms of diarrhea may have been due to the doxycycline you are taking for your upper respiratory infection, or may have been due to gastroenteritis ("GI bug") as that is also going around. You were also evaluated by the urology team because of hematuria (blood in urine) noted on urinalysis, and mild right-sided hydronephrosis (swelling of the kidney) noted on CT scan. There are no signs of infection or obstruction, and your renal function is normal. Urology will schedule a follow-up appointment in the office for you. Upon discharge from the hospital: * Continue your PPI - Omeprazole 20 mg twice daily. * Take Zofran 1 tablet every 6 hours as needed for nausea. * Stay hydrated - drink plenty of water and electrolyte drinks to prevent dehydration. * Avoid NSAIDs as these can make gastritis worse. NSAIDs include ibuprofen, aspirin, naproxen. * Follow-up with your PCP in 1-2 weeks. * Follow-up with urology outpatient for further evaluation of hematuria (blood in urine). Please return to the hospital if you experience any of the following: Chest pain, difficulty breathing, lightheadedness, passing out, unable to tolerate oral intake, or any other symptoms concerning for you. It was a pleasure taking care of you while you were in the hospital, Monae Mayo PA-C Pending Studies at Discharge: Yes Studies:: EGD biopsies Stand-Alone Forms: My [facility], Smoking Cessation Medications and DC Order Prescriptions: New ondansetron HCl 4 mg tablet 4 mg PO Q6H PRN (Reason: nausea and vomiting) Qty: 20 0RF Continued clobetasol 0.05 % cream See Rx Instructions .ROUTE .COMPLEX PRN (Reason: rash) Qty: 15 1RF Dose Instruction: APPLY SPARINGLY TO AFFECTED AREA(S) TWICE DAILY Rx Instructions: APPLY SPARINGLY TO AFFECTED AREA(S) TWICE DAILY PRN; diclofenac sodium 1 % gel 2 g TOP .COMPLEX PRN (Reason: Pain) Qty: 100 0RF Rx Instructions: 2 g TOP APPLY TO AFFECTED AREA EVERY 4-6 HOURS NEEDED. PRN; levothyroxine 50 mcg tablet 50 mcg PO DAILY Qty: 90 3RF Ca Dls-X5-C-Mzud-vnply-ywh bor 250 mg calcium -500 unit tablet 1 tab PO BID Patient Comments: 1 tab PO 2-3 TIMES DAILY; fexofenadine 180 mg tablet 180 mg PO DAILY polyethylene glycol 3350 [Miralax] 17 gram/dose powder See Rx Instructions PO DAILY PRN (Reason: Constipation) Patient Comments: MIX 1 CAPFUL (17GM) IN 8OZ. OF WATER,JUICE, OR TEA AND DRINK DAILY OR NEEDED. PO DAILY PRN; Rx Instructions: MIX 1 CAPFUL (17GM) IN 8OZ. OF WATER,JUICE, OR TEA AND DRINK DAILY OR NEEDED. PO DAILY PRN; multivitamin tablet 1 tab PO DAILY echinacea 380 mg capsule 760 mg PO DAILY Rx Instructions: administer with meals omeprazole 20 mg capsule,delayed release(DR/EC) 20 mg PO BID Rx Instructions: 20 MG twice daily until otherwise instructed by gastroenterology Airborne (ascorbate sodium) 334-1.7 mg tablet,chewable 4 tab PO UNKNOWN PRN (Reason: PRN) zoledronic [id number]-qmiub [Reclast] 5 mg/100 mL piggyback 1 ea IV YEARLY melatonin 3 mg capsule 3 mg PO HS PRN (Reason: Sleep) acetaminophen 500 mg Tablet 500 mg PO Q6H PRN (Reason: Pain) bacitracin zinc-polymyxin B 500-10,000 unit/gram Ointment 1 applic TOPICAL Q12H PRN (Reason: Prophylaxis) docusate sodium [Colace] 100 mg Capsule 100 mg PO BID Discontinued doxycycline hyclate 100 mg tablet 100 mg PO BID 7 Days Qty: 14 0RF No Action PROBIOTIC PO DAILY Fiber Therapy (m-cellulose) 500 mg tablet 1,000 mg PO BID Discharge Orders: Discharge Order (Routine); Ordered 10/18/24 Ordered By: Monae Meyer/Other Patient Handouts: Preventing Deep Vein Thrombosis, ED Gastritis (Adult) Admission Data Admit Date/Time: 10/17/24 21:58 Attending Provider: Jai Herrera Admit Provider: Boo Ryan Primary Care Provider: Nallely Lan Other Providers: Jalen Walker; Christo Molina; Thanh Guillen. Other Interventions: Discharge Summary Assessment (RN) Last Done: 10/18/24 16:06 Discharge Summary Assessment (RN) Last Done: 10/18/24 14:51 Hospital Stay Data Consultations 10/17/24 21:12 Consult Gastroenterology Routine 10/17/24 21:13 ED Decision to Admit Stat 10/17/24 22:56 Consult Urology Routine Procedures Performed Operation Date: 10/18/24 17:40 Actual Procedures p EGD Biopsy Cytology - Jalen Walker MD Diagnostic Imagining Performed 10/17/24 18:07 CT abd pelvis IV con only Stat Pending Results Patient Have Any Pending Studies at Discharge: Yes Discharge Instructions Given to Patient (Per Discharging Provider) Mrs. Lindo, Kevin were admitted to the hospital due to concern for gastric outlet obstruction noted on CT scan of your abdomen/pelvis. You were evaluated by the GI team, who performed an EGD on 10/18/2024. The EGD showed gastritis (inflammation of your stomach lining), but luckily no mass or anatomical abnormality or gastric outlet obstruction. Biopsies were taken and can be followed up on with your PCP. This gastritis and your symptoms of diarrhea may have been due to the doxycycline you are taking for your upper respiratory infection, or may have been due to gastroenteritis ("GI bug") as that is also going around. You were also evaluated by the urology team because of hematuria (blood in urine) noted on urinalysis, and mild right-sided hydronephrosis (swelling of the kidney) noted on CT scan. There are no signs of infection or obstruction, and your renal function is normal. Urology will schedule a follow-up appointment in the office for you. Upon discharge from the hospital: * Continue your PPI - Omeprazole 20 mg twice daily. * Take Zofran 1 tablet every 6 hours as needed for nausea. * Stay hydrated - drink plenty of water and electrolyte drinks to prevent dehydration. * Avoid NSAIDs as these can make gastritis worse. NSAIDs include ibuprofen, aspirin, naproxen. * Follow-up with your PCP in 1-2 weeks. * Follow-up with urology outpatient for further evaluation of hematuria (blood in urine). Please return to the hospital if you experience any of the following: Chest pain, difficulty breathing, lightheadedness, passing out, unable to tolerate oral intake, or any other symptoms concerning for you. It was a pleasure taking care of you while you were in the hospital, Monae Mayo PA-C Supervising Physician Co-Signing Physician Notes Attending Attestation & Discharge Note: Chart reviewed, care plan d/w PA Monae Mayo. I agree w/ the peterson components of her discharge documentation. Of note - I did not perform a bedside visit or perform physical exam. 74-year-old with h/o microscopic 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 Presented with diarrhea & abd pain x 1 day. Had recent URI that was treated with courses of prednisone and doxycycline; she was on day 6/7 of doxycycline at time of presentation to [facility] ER. CT abd/pelvis done in the ER showed - * ?findings concerning for gastric outlet obstruction? * small & large bowel filled with liquid stool - c/w enterocolitis She tested + for Norovirus & sapovirus - both require no specific Rx. Due to ? of gastric outlet obstruction she underwent EGD. She had several gastric polyps, gastritis, a duodenal mass (biopsied) - but NO gastric outlet obstruction. She will cont PPI and await biopsies from the EGD. She will d/c to home w/ supportive care for her Norovirus/sapovirus infections. Since she was nearly done with the doxycycline will recommend stopping such at this time. Jai Herrera MD Total Time Total Time Spent Total Time Spent (In Minutes): Greater than 30 minutes spent completing this discharge process including direct patient care, medication reconciliation, documentation, review of labs and images, and coordination of care. Coding Level of Care Code 17318 INP/OBS DISCH >30 MIN Diagnoses Gastric outlet obstruction K31.1 Diarrhea R19.7 Leukocytosis D72.829 Hyponatremia E87.1 Hematuria R31.9 Hydronephrosis of right kidney N13.30
== END 2024-10-18 17:12 | disposition home or self-care (01) | DRG 381 ==
LOC: ED 17:13 → SUATTDRO 21:58 → 3W 21:58
DX: Z88.0 Allergy status to penicillin; Z79.899 Other long term (current) drug therapy; Z80.0 Family history of malignant neoplasm of digestive organs; K21.9 Gastro-esophageal reflux disease without esophagitis; Z88.1 Allergy status to other antibiotic agents; R32 Unspecified urinary incontinence; R31.29 Other microscopic hematuria; Z79.890 Hormone replacement therapy; K31.89 Other diseases of stomach and duodenum; R39.15 Urgency of urination; K29.70 Gastritis, unspecified, without bleeding; K44.9 Diaphragmatic hernia without obstruction or gangrene; R19.7 Diarrhea, unspecified; Z88.7 Allergy status to serum and vaccine; E87.1 Hypo-osmolality and hyponatremia; E03.9 Hypothyroidism, unspecified; M81.0 Age-related osteoporosis without current pathological fracture; N13.30 Unspecified hydronephrosis; K31.7 Polyp of stomach and duodenum; Z87.11 Personal history of peptic ulcer disease; K58.9 Irritable bowel syndrome, unspecified; Z88.2 Allergy status to sulfonamides; K31.1 Adult hypertrophic pyloric stenosis